=== PATIENT | female | born 1960 | race Caucasian/White ===

== ENCOUNTER → 2025-06-24 | Outpatient (CLI) | payer OTHER, SELFPAY ==
--- NOTE | 2025-06-24 | EMB_PTH ---
PATIENT: FREDO MANZO LOC: [facility] U#:[id number] AGE/SX: 64/F ROOM: RE06/24/[address]: Dr. Tasha Miguel MD : [id number] BED: DIS: 06/24/2025 SPEC #: [id number] RECD: 06/24/25 16:37 STATUS: DUSTIN ELENITA #: [id number] CAROLINE: 06/24/25 00:[address]: Tasha Miguel DEPT: SURGICAL PATHOLOGY RECD BY: Cliff Nicohlas Tissues: A - Endometrium, NOS Procedures: Surgery Specimen Level IV HEADER OPERATION: Endometrial biopsy / polypectomy PRE-OP DIAGNOSIS: Endometrial hyperplasia TISSUE SUBMITTED: A- Endometrial tissue / polyp MICROSCOPIC DIAGNOSIS A. Endometrium, biopsy/polypectomy: - Benign endometrial polyp and few strips of superficial endometrium. MICROSCOPIC DESCRIPTION Slides are reviewed. GROSS DESCRIPTION A. Received in formalin labeled the patient's name and date of is a 2.4 x 1.1 x 0.2 cm aggregate of dawn-pink tissue fragments, mucoid material and blood clot. Additionally received is a 4.1 x 1.0 x 0.5 cm dawn-pink, focally congested and granular, rubbery polypoid portion of tissue; 1 end is focally shaggy and is presumed to be the resection margin (inked black). The polyp is serially sectioned. Entirely submitted in 3 cassettes as follows: A1: Aggregate of tissue fragments and mucoid materialA2-A3: Polyp DE 06/25/2025 CPT:[id number]
== END | disposition home or self-care (01) ==
LOC: LABSPEC 16:18
PROVIDERS: Visit Provider Obstetrics & Gynecology
DX: N85.01 Benign endometrial hyperplasia (principal)
CPT/HCPCS: 88305

== ENCOUNTER → 2025-07-10 | Outpatient (CLI) | payer OTHER, SELFPAY ==
--- NOTE | 2025-07-10 12:11 | US_ITS ---
PROCEDURE: TRANSVAGINAL NON- 07/10/2025 REASON FOR EXAM: PMB TECHNIQUE: TRANSVAGINAL NON- COMPARISON: None FINDINGS: Measurements: Uterus: 6.9 cm x 3.7 cm x 2.6 cm with a volume of 34.07 mL Endometrial Thickness: 1.3 mm Right Ovary: Not visualized. Left Ovary: Not visualized. Uterus: Heterogeneous echotexture with a small 8 mm x 8 mm x 8 mm fibroid. Focal calcifications are seen. Endometrium: Unremarkable. It measures 1.3 mm. Right ovary: Not visualized. Left ovary: Not visualized. Other: No large pelvic mass identified. US/Transvaginal Non- IMPRESSION: Fibroid change in the uterus. The endometrium is not thickened. The ovaries were not visualized. Reading Location: [id number]
--- OUTSIDE RECORDS SUMMARY | 2025-07-10 18:24 | XMS RPT_ITS | CCD ---
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 Primary Care Unavailable Javy HANNON Nereyda LThais Primary Care Provider [phone] JEREMIAH PALAFOXSSICA Rubia. Primary Care Unavailable CAYETANO HIRSCH Attending Unavailable RADHA BILLINGSLEY Attending Unavailable KASANDRAEY NEREYDA Rubia. Primary Care Unavailable CAYETANO HIRSCH Attending Unavailable YONLEY NEREYDA L. Primary Care Unavailable YONLEY, NEREYDA L Primary Care Physician Sadiq Reis Attending Unavailable Sadiq Reis Attending Unavailable Yobrianneey DO Nereyda Rubia Primary Care Provider JAVY NEREYDA L Referring Unavailable YONLEY, NEREYDA L Primary Care Unavailable MARGRET RODRIGUEZ Attending Unavailable YOBRIANNEEY, NEREYDA L Primary Care Unavailable BIRD, MAGDALENE NORMA Referring Unavailable BIRD, MAGDALENE NORMA Attending Unavailable BIRD, MAGDALENE NORMA Primary Care Unavailable SYSTEM, PROVIDER NOT IN Referring Unavaila ble SYSTEM, PROVIDER NOT IN Attending Unavaila ble BIRD, MAGDALENE NORMA Primary Care Unavailable BIRD, MAGDALENE NORMA Primary Care Unavailable SYSTEM, PROVIDER NOT IN Referring Unavaila ble SYSTEM, PROVIDER NOT IN Attending Unavaila ble BIRD, MAGDALENE NORMA Referring Unavailable BIRD, MAGDALENE NORMA Attending Unavailable BIRD, MAGDALENE NORMA Primary Care Unavailable Adrienne James Attending Provider Unavailable Myriam AGUILAR, Dr. Cordova Attending Provider Adrienne James Attending Unavailable Adrienne James Attending Unavailable Tasha Miguel Attending Unavailable Magdalene Ritter Primary Care Unavailable Tasha Miguel Referring Unavailable Tasha Miguel Attending Unavailable Tasha Miguel Attending Unavailable Allergies Allergy Classification Reported Allergen(s) Allergy Type Date of Onset Reaction(s) Facility Anti-Epileptic Agents (1 source) gabapentin Drug Allergy 0 Swelling [facility] Quinolones (antibiotic) (2 sources) Ciprofloxacin Drug Allergy 5 Other (See Comments) [facility] (19 sources) Ciprofloxacin; Translations: [CIPROFLOXACIN] Drug Allergy 5 Other (See Comments) [facility] (12 sources) gabapentin; Translations: [GABAPENTIN] Drug Allergy 0 Swelling [facility] (2 sources) Ciprofloxacin; Translations: [Cipro] Drug Allergy [facility] Repository (1 source) Ciprofloxacin Drug Allergy 5 [facility] Repository Medications Current Medications Medication Drug Class(es) Dates Sig (Normalized) Sig (Original) [id number] actuat albuterol 0.09 mg/actuat metered dose inhaler (6 sources) beta2-Adrenergic Agonist Start: 06-30-2022 take 2 puff(s) by inhalation every four hours as needed albuterol sulfate HFA (PROVENTIL;VENTOL IN;PROAIR) 108 (90 Base) MCG/ACT inhaler Inhale 2 puffs into the lungs every 4 hours as needed for Shortness of Breath 1 each 2 06/30/2022 Active Start: 04-29-2021 take 2 puff(s) by in halation every four hours as needed albuterol sulfate HFA 108 (90 Base) MCG/ACT inhaler Indications: Simple chronic bronchitis (HCC) Inhale 2 puffs into the lungs every 4 hours as needed for Shortness of Breath 1 Inhaler 1 04/29/2021 Active Start: 11-26-2019 take 2 puff(s) by in halation every six hours as needed for wheezing albuterol sulfate HFA 108 (90 Base) MCG/ACT inhaler Inhale 2 puffs into the lungs every 6 hours as needed for Wheezing 1 Inhaler 1 11/26/2019 Active Start: 04-05-2012 albuterol Inha lation, Refills(s) 0, Wheezing Start Date: 04/05/12 Status: Ordered alendronic acid 70 mg oral tablet (2 sources) Bisphosphonate Start: 06-18-2025 take 1 tablet by mouth every week Alendronate (Fosamax) 70 mg tablet Active 70 mg PO EVERY WEEK June 18, 2025 12:00am buprenorphine 8 mg / naloxone 2 mg sublingual film (3 sources) Partial Opioid Agonist, Opioid Antagonist Start: 06-18-2025 Buprenorphine-Nal oxone 8-2 mg film Active 2 NMA BUCCAL daily June 18, 2025 12:00am Start: 07-08-2023 buprenorphine- naloxone (SUBOXONE) 8-2 MG SUBL SL tablet Dissolve 1 tablet under tongue twice daily as directed 07/08/2023 Active 24 hr buPROPion hydrochloride 150 mg extended release oral tablet (2 sources) Aminoketone Start: 06-18-2025 take 1 tablet by mouth once daily in the morning Bupropion Hcl (Wellbutrin Xl) 150 mg tablet extended release 24 hr Active 150 mg PO EVERY MORNING June 18, 2025 12:00am calcium carbonate 1500 mg / cholecalciferol 0.01 mg oral tablet (2 sources) Vitamin D Start: 06-18-2025 Calcium Carbonate-Vitamin D3 600 mg-10 mcg (400 unit) tablet Active 2 {tbl} PO daily June 18, 2025 12:00am cephalexin 500 mg oral capsule (1 source) Cephalosporin Antibacterial Start: 07-10-2024 take 1 capsule by mouth three times daily cephALEXin (KEFLEX) 500 MG capsule Take 1 capsule by mouth 3 times daily 21 capsule 07/10/2024 Active estradiol 0.1 mg/ml vaginal cream (2 sources) Estrogen Start: 06-18-2025 Estradiol 0.01 % (0.1 mg/gram) cream Active 2 g VAGINAL daily June 18, 2025 12:00am for 7 days hydroCHLOROthiazide 25 mg oral tablet (3 sources) Thiazide Diuretic Start: 06-18-2025 take 1 tablet by mouth once daily Hydrochlorothiazide 25 mg tablet Active 25 mg PO daily June 18, 2025 12:00am Start: 03-25-2024 take 1 tablet by sam th once daily in the morning hydroCHLOROthiazide (HYDRODIURIL) 25 MG tablet Take 1 tablet by mouth every morning 90 tablet 03/25/2024 Active hydrOXYzine hydrochloride 50 mg oral tablet (3 sources) Antihistamine Start: 06-18-2025 take 1 tablet by mouth twice daily Hydroxyzine Hcl 50 mg tablet Active 50 mg PO TWICE A DAY June 18, 2025 12:00am Start: 08-07-2013 take 1 tablet by sam th four times daily as needed Atarax 25 mg Tab 25 mg, Oral, QID, PRN as needed for itching, # 20 tab(s), Refills(s) 0 Start Date: 08/07/13 Status: Ordered levothyroxine sodium 0.025 mg oral tablet (6 sources) l-Thyroxine Start: 06-18-2025 take 1 tablet by mouth once daily Levothyroxine (Levoxyl) 25 mcg tablet Active 25 ug PO daily June 18, 2025 12:00am Start: 12-19-2023 take 1 tablet by sam th once daily in the morning levothyroxine (SYNTHROID) 25 MCG tablet Take 1 tablet by mouth every morning 30 tablet 12/19/2023 Active Start: 04-12-2023 take 1 tablet by sam once daily levothyroxine (SYNTHROID, LEVOTHROID) 25 MCG tablet Take 1 (one) tablet (25 mcg total) by mouth daily . 0 04/12/2023 Active 24 hr metoprolol succinate 25 mg extended release oral tablet (5 sources) beta-Adrenergic Heike Start: 10-21-2022 take 1 tablet by mouth once daily metoprolol succinate (TOPROL XL) 25 MG extended release tablet TAKE 1 TABLET BY MOUTH EVERY DAY 90 tablet 1 10/21/2022 Active Start: 04-29-2021 take 1 tablet by sam once daily metoprolol succinate (TOPROL XL) 25 MG extended release tablet Take 1 tablet by mouth daily 90 tablet 1 04/29/2021 Active Start: 11-26-2019 take 1 tablet by sam th once daily metoprolol succinate (TOPROL XL) 25 MG extended release tablet Take 1 tablet by mouth daily 90 tablet 1 11/26/2019 Active naproxen 500 mg oral tablet (2 sources) Nonsteroidal Anti-inflammatory Drug Start: 06-22-2024 take 1 tablet by mouth twice daily as needed for pain naproxen 500 mg Tab 500 mg = 1 tab(s), Oral, BID, PRN for pain, # 20 tab(s), Refills(s) 0, Pharmacy: [facility] #[id number], 170, cm, 06/22/24 11:00:00 EDT, Height/Length Dosing, 87.6, kg, 06/22/24 11:00:00 EDT, Weight Dosing Start Date: 06/22/24 Status: Ordered Start: 03-25-2024 take 1 tablet by sam th twice daily at mealtime naproxen (EC-NAPROSYN) 500 MG EC tablet Take 1 tablet by mouth 2 times daily (with meals) 60 tablet 2 03/25/2024 Active Nitrostat (1 source) Nitrate Vasodilator Start: 04-05-2012 Nitrostat SubLingual, q5min, tab(s), Refills(s) 0, Chest pain Start Date: 04/05/12 Status: Ordered oxyCODONE hydrochloride 5 mg oral capsule (1 source) Opioid Agonist Start: 06-22-2024 oxyCODONE 5 mg Cap 5 mg = 1 cap(s), Oral, q6hr, PRN Pain 8-10, # 12 cap(s), Refills(s) 0, Pharmacy: [id number], 170, cm, 06/22/24 11:00:00 EDT, Height/Length Dosing, 87.6, kg, 06/22/24 11:00:00 EDT, Weight Dosing Start Date: 06/22/24 Status: Ordered Symbicort 160 mcg-4.5 mcg 160 mcg-4.5 mcg/inh Aerosol (1 source) Start: 04-05-2012 Symbicort 160 mcg-4.5 mcg 160 mcg-4.5 mcg/inh Aerosol Inhalation, Refill(s) 0, Wheezing Start Date: 04/05/12 Status: Ordered tamsulosin hydrochloride 0.4 mg oral capsule (1 source) alpha-Adrenergic Heike Start: 06-22-2024 End: 06-29-2024 take 1 capsule by mouth once daily Flomax 0.4 mg Cap 0.4 mg = 1 cap(s), Oral, Daily, X 7 day(s), # 7 cap(s), Refills(s) 0, Pharmacy: [facility], 170, cm, 06/22/24 11:00:00 EDT, Height/Length Dosing, 87.6, kg, 06/22/24 11:00:00 EDT, Weight Dosing Start Date: 06/22/24 Stop Date: 06/29/24 Status: Ordered Zofran ODT 4 mg Tab-Dis (1 source) Start: 06-22-2024 take 1 tablet by mouth every eight hours as needed for nausea Zofran ODT 4 mg Tab-Dis 4 mg = 1 tab(s), Oral, q8hr, PRN Nausea/Vomiting, # 16 tab(s), Refills(s) 0, Pharmacy: [facility] #[id number], 170, cm, 06/22/24 11:00:00 EDT, Height/Length Dosing, 87.6, kg, 06/22/24 11:00:00 EDT, Weight Dosing Start Date: 06/22/24 Status: Ordered Completed/Discontinued Medications Medication Drug Class(es) Dates Sig (Normalized) Sig (Original) aspirin 81 mg chewable tablet (1 source) Platelet Aggregation Inhibitor, Nonsteroidal Anti-inflammatory Drug Start: 12-02-2019 End: 12-02-2019 aspirin chewable tablet 324 mg cetirizine hydrochloride 10 mg oral tablet (2 sources) Histamine-1 Receptor Antagonist Start: 05-15-2018 End: 12-02-2019 take 1 tablet by mouth once daily cetirizine (ZYRTEC ALLERGY) 10 MG tablet Indications: Acute non-recurrent maxillary sinusitis Take 1 tablet by mouth daily 30 tablet 0 05/15/2018 12/02/2019 Discontinued (LIST CLEANUP) fluticasone propionate 0.05 mg/actuat metered dose nasal spray (2 sources) Corticosteroid Start: 05-15-2018 End: 12-02-2019 fluticasone (FLONASE) 50 MCG/ACT nasal spray Indications: Acute non-recurrent maxillary sinusitis 1 spray by Nasal route daily 1 Bottle 1 05/15/2018 12/02/2019 Discontinued (LIST CLEANUP) Problems Active Problems Problem Classification Problem Date Documented Date Episodic/Chronic Abdominal pain (3 sources) Pain in pelvis; Translations: [Pelvic and perineal pain] Onset: 06-16-2025 Episodic Acute myocardial infarction (1 source) Myocardial infarction 02-03-2012 Chronic Calculus of urinary tract (1 source) Kidney stone; Translations: [Calculus of kidney] Onset: 06-22-2024 Episodic Chronic obstructive pulmonary disease and bronchiectasis (5 sources) Chronic bronchitis; Translations: [Unspecified chronic bronchitis] Onset: 03-15-2016 11-27-2019 Chronic Menstrual disorders (1 source) Irregular menstruation, unspecified; Translations: [Irregular menstruation, unspecified] Onset: 07-07-2025 Chronic Other and unspecified benign neoplasm (1 source) Lipoma of skin and subcutaneous tissue of neck; Translations: [Benign lipomatous neoplasm of skin and subcutaneous tissue of head, face and neck] 06-22-2023 Episodic Other and unspecified benign neoplasm (2 sources) Benign lipomatous neoplasm of skin and subcutaneous tissue of head, face and neck; Translations: [Benign lipomatous neoplasm of skin and subcutaneous tissue of head, face and neck] Onset: 06-22-2023 Episodic Other ear and sense organ disorders (3 sources) Sensorineural hearing loss, bilateral; Translations: [Sensorineural hearing loss, bilateral] Onset: 04-27-2023 04-27-2023 Chronic Other ear and sense organ disorders (1 source) Sensorineural hearing loss, bilateral; Translations: [Sensorineural hearing loss, bilateral] Onset: 04-27-2023 Chronic Other female genital disorders (2 sources) Endometrial hyperplasia; Translations: [Endometrial hyperplasia, unspecified] 06-18-2025 Chronic Other female genital disorders (1 source) Benign endometrial hyperplasia; Translations: [Benign endometrial hyperplasia] Onset: 07-01-2025 Chronic Other female genital disorders (1 source) Endometrial hyperplasia, unspecified; Translations: [Endometrial hyperplasia, unspecified] Onset: 06-24-2025 Chronic Other female genital disorders (1 source) Vaginal discharge; Translations: [Other specified noninflammatory disorders of vagina] Episodic Other female genital disorders (2 sources) Polyp of corpus uteri; Translations: [Polyp of corpus uteri] 06-24-2025 Episodic Other female genital disorders (1 source) Polyp of corpus uteri; Translations: [Polyp of corpus uteri] Onset: 06-24-2025 Episodic Other screening for suspected conditions (not mental disorders or infectious disease) (3 sources) Endometrium thickened; Translations: [Abnormal findings on diagnostic imaging of other specified body structures] Onset: 06-24-2025 06-24-2025 Chronic Other screening for suspected conditions (not mental disorders or infectious disease) (2 sources) Cancer cervix screening status; Translations: [Encounter for screening for malignant neoplasm of cervix] Episodic Other skin disorders (2 sources) Mass of neck; Translations: [Localized swelling, mass and lump, neck] 04-27-2023 Episodic Other skin disorders (2 sources) Localized swelling, mass and lump, neck; Translations: [Localized swelling, mass and lump, neck] Onset: 04-27-2023 Episodic Pleurisy; pneumothorax; pulmonary collapse (1 source) Pneumothorax 01-24-2014 Episodic Residual codes; unclassified (2 sources) Asymptomatic menopausal state; Translations: [Asymptomatic menopausal state] Onset: 09-17-2024 Episodic Skin and subcutaneous tissue infections (2 sources) Cellulitis of left upper limb; Translations: [Cellulitis of left upper limb] Onset: 07-10-2024 07-10-2024 Episodic Thyroid disorders (5 sources) Hypothyroidism; Translations: [Hypothyroidism, unspecified] Onset: 04-27-2023 04-27-2023 Chronic Unclassified (1 source) Patient encounter status Unclassified (1 source) Emphysema 01-24-2014 Past or Other Problems Problem Classification Problem Date Documented Da te Episodic/Chronic Diabetes mellitus without complication (1 source) Hyperglycemia, unspecified; Translations: [Hyperglycemia, unspecified] Onset: 07-13-2023 Episodic Genitourinary symptoms and ill-defined conditions (7 sources) Dysuria; Translations: [Dysuria] Onset: 07-07-2016 Resolved: 07-06-2018 Episodic Nonspecific chest pain (1 source) Chest pain Episodic Other connective tissue disease (1 source) Other specified soft tissue disorders; Translations: [Other specified soft tissue disorders] Onset: 07-13-2023 Episodic Other lower respiratory disease (5 sources) Dyspnea; Translations: [Shortness of breath] Onset: 11-17-2017 Resolved: 07-06-2018 07-06-2018 Episodic Other non-traumatic joint disorders (1 source) Shoulder pain Episodic Screening and history of mental health and substance abuse codes (1 source) Ex-smoker; Translations: [Personal history of nicotine dependence] Onset: 08-16-2021 08-16-2021 Episodic Spondylosis; intervertebral disc disorders; other back problems (5 sources) Chronic low back pain; Translations: [Low back pain] Onset: 05-06-2016 05-06-2016 Episodic Syncope (5 sources) Syncope; Translations: [Syncope and collapse] Onset: 11-17-2017 Resolved: 07-06-2018 07-06-2018 Episodic Unclassified (1 source) Onset: 07-13-2023 07-13-2023 Results Test Name Value Interpretation Reference Range Facility Surgical pathology reportOrd ered By: Radha Hobbs on 06-27-2025 Surgical pathology study [facility] Security Flex Utility Officer Office Visit Reporton 06-24-2025 Security Flex Utility Officer Office Visit Report [facility] [address], [address] [place] [address] OFFICE VISIT Date of Service: 06/24/25 MR#: [id number] Acct: [id number] Name: SHONA MANZO Rep #: [id number] : 1960 Provider: Dr. Tasha guerra MD Age/Sex: 64/F [place] [facility] [place] Signed Intake Vital Signs 06/24/25 13:29 Height 5 ft 7.5 in Weight: 173 lb 2 oz BMI 26.6 BP 143/84 H Intake Visit Reasons: [facility] ([facility] Certified Solid Waste Facility Operator Required: No Is patient in pain?: No (vaginal pain usually when waking up) Allergies ciprofloxacin (From Cipro) Allergy (Severe, Verified 06/24/25 13:29) Anaphylaxis Medications ???Medication ???Instructions ???Recorded ???Confirmed ???Type alendronate 70 mg tablet (Fosamax) 70 mg PO QWEEK 06/18/25 06/24/25 History buprenorphine 8 mg-naloxone 2 mg 2 film buccal QDAY 06/18/25 History sublingual film bupropion HCl 150 mg 24 hr tablet, 150 mg PO QAM 06/18/25 06/24/25 History extended release (Wellbutrin XL) calcium 600 mg (as 2 tab PO QDAY 06/18/25 06/24/25 Hi story carbonate)-vitamin D3 10 mcg (400 unit) tablet estradiol 0.01% (0.1 mg/gram) 2 g vaginal QDAY 06/18/25 06/24/25 History vaginal cream hydrochlorothiazide 25 mg tablet 25 mg PO QDAY 06/18/25 06/24/25 Hi story hydroxyzine HCl 50 mg tablet 50 mg PO BID 06/18/25 06/24/25 His tory levothyroxine 25 mcg tablet 25 mcg PO QDAY 06/18/25 06/24/25 H istory (Levoxyl) Is last menstrual period known: No Post menopausal: Yes Patient : No : No PFSH PFSH Medical History Overweight (BMI 25.0-29.9) Osteoporosis Edema Alcoholism Depression Vitamin D deficiency Hypothyroidism Surgical History History of cholecystectomy History of appendectomy Family History Father Myocardial infarction, Onset Age: 83 Mother Liver cancer Social History number of children: 3 current occupational status: retired Smoking Status: Former smoker alcohol intake: former year quit: 2012 do you feel safe at home: No additional social history: Adopted son - Jose Luis - [place] History 6 Elective abortions Hx Para 3 Spontaneous abortions 3 Hx # Term Pregnancies Ectopic pregnancies Hx # Pregnancies Multiple births # of living children 3 Past Pregnancies Del. Date Name GA/Weeks Outcome Route Bth Weight Gen Labor Lgth Anesthesia Del Locatn Provider FOB Unknown 1976 Kayla Unknown 1978 Magalys Unknown 1981 Kailey HPI [facility]) Details: SHONA MANZO is a 64 year old who presents for thickened endometrium. she dneies any vaginal bleeidng althought she has pelvic discomfort and dyspareunia and has bee nasking for a hysterectomy for years. she is unable to have sex wit hher due to it. she has vaginal dryness also, was unable to take vaginal estrogen due to bleeding. she denies any discharge or odor, no fevers. she co lower abdominal pain at times Female Reproductive History Cycle Length: 21-35 Bleeding Duration: 5 Questions: metrorrhagia: No, sexually active: Yes, dyspareunia: No and PCB: No Menopausal Symptoms: No hot flashes, No night sweats, No weight change, No mood changes, No difficulty concentrating, No sleep problems and No change in libido ROS Const Constitutional: Denies fatigue, night sweats, weight gain or weight loss ENT ENT: Reports system reviewed and no additional complaints, except as documented Cardio Card: Denies chest pain Resp Resp: Denies cough or dyspnea GI GI: Reports as per HPI; Denies constipation, nausea or vomiting : Reports as per HPI; Denies hot flashes, nipple discharge, vaginal discharge, vaginal dryness, vaginal odor or vaginal pruritus Musc Musc: Denies arthralgias, back pain or muscle weakness Skin Skin/Breast: Denies alopecia, change in hair, dry skin, breast mass, breast pain, breast skin changes or nipple discharge Neuro Neuro: Reports system reviewed and no additional complaints, except as documented Psych Psych: Reports system reviewed and no additional complaints, except as documented; Denies change in libido or difficulty concentrating Endo Endo: Denies cold intolerance, excessive sweating, heat intolerance or polydipsia Dwain/Lymph Hematologic/Lymphat ic: Denies easy bleeding, Denies easy bruising and Denies lymphadenopathy Exam Const General: cooperative, healthy appearing, comfortable, no acute distress and well developed Orientation: alert HENWV Head: normal to inspection and normo (more content not included)... Normal [facility] Surgery Specimen Level Jayy 06-24-2025 Surgery Specimen Level IV Patient Age/Sex Location Account Attending Physician SHONA MANZO 64/F LABSPEC [id number] Dr. Tasha Miguel MD Specimen: [id number] Received: 06/24/25 Status: DUSTIN Sherman Num: [id number] Spec Type: ENDOM BX/C Jovita Dr: Dr. Tasha Miguel MD HEADER OPERATION: Endometrial biopsy / polypectomy PRE-OP DIAGNOSIS: Endometrial hyperplasia TISSUE SUBMITTED: A- Endometrial tissue / polyp MICROSCOPIC DIAGNOSIS A. Endometrium, biopsy/polypectomy: - Benign endometrial polyp and few strips of superficial endometrium. MICROSCOPIC DESCRIPTION Slides are reviewed. GROSS DESCRIPTION A. Received in formalin labeled the patient's name and date of is a 2.4 x 1.1 x 0.2 cm aggregate of dawn-pink tissue fragments, mucoid material and blood clot. Additionally received is a 4.1 x 1.0 x 0.5 cm dawn-pink, focally congested and granular, rubbery polypoid portion of tissue; 1 end is focally shaggy and is presumed to be the resection margin (inked black). The polyp is serially sectioned. Entirely submitted in 3 cassettes as follows: A1: Aggregate of tissue fragments and mucoid materialA2-A3: Polyp NV 06/25/2025 CPT:95917 Patient Age/Sex Location Account Attending Physician SUNITASHONA 64/F LABSPEC [id number] Dr. Tasha Miguel MD Signed (signatur e on file) Dr. Radha Hobbs MD 06/27/25 1553 Normal [facility] Comment on above: Performed By: #### P SUSIDNEY #### [facility] [address] [place], [place] [address]yari Dias. [place], [place], [id number] US PELVIC TRANSABDOMINAL AND TRANSVAGINALon 06-16-2025 US PELVIC TRANSABDOMINAL AND TRANSVAGINAL EXAMINATION: US PELVIC TRANSABDOMINAL AND TRANSVAGINAL HISTORY: ORDERING SYSTEM PROVIDED HISTORY: Pelvic and perineal pain, TECHNOLOGIST PROVIDED HISTORY: Illness/Other Reason for exam: pelvic pain, spotting Cancer History: unk Surgery, RadiationHistory: unk Encounter Type: Initial Additional signs and symptoms: none ORDERING SYSTEM PROVIDED DIAGNOSIS CODES: R10.2 Pelvic and perineal pain COMPARISON: None TECHNIQUE: Transabdominal and transvaginal pelvic ultrasound with Doppler interrogation. FINDINGS: UTERUS: Measures 6.8 x 2.4 x 4.0 cm. There is a 1.7 x 1.6 x 1.6 cm right fundal intramural fibroid. Nabothian cysts are present, small. ENDOMETRIUM: Measures 6 mm, heterogenous. Endometrial stripe is hypervascular as well. OVARIES: Not visualized. Echogenic ill-defined area in the right adnexa measuring 5.5 x 5.5 x 3.8 cm. This could represent bowel within the pelvis but other etiologies are not excluded. There is a 1.7 x 1.3 x 1.3 cm focus in the left adnexa that could represent the ovary, however, the exact etiology is uncertain. MISCELLANEOUS: No significant free fluid. IMPRESSION: 1. Heterogenous, hypervascular and mildly thickened endometrial stripe. Endometrial carcinoma must be excluded although other etiologies could appear in a similar fashion. Tissue sampling recommended. 2. Ovaries not definitively visualized. Question some bowel in the right adnexa. Etiology of the areas imaged in the adnexal regions is uncertain. Pelvic CT with contrast could be obtained for further interrogation. 3. Fibroid uterus. Workstation ID: [id number] Dictated by: JACQUELIN RUSSO on MonJun 16, 2025 3:20:30 PM EDT Transcribed by: JACQUELIN RUSSO on MonJun 16, 2025 3:20:30 PM EDT Finalized by: JACQUELIN RUSSO on MonJun 16, 2025 3:20:30 PM EDT [facility] Comment on above: Order Comment: Fax Injury/Trauma or Illness?:Illness/Other How long have you had these symptoms (acute/chronic)?:Acute Reason for exam?:pelvic pain, spotting History of cancer?:unk Surgeries, chemotherapy, or radiation?:unk patient states unilateral oophorectomy, unsure side Type of Exam?:Initial Additional signs and symptoms?:none XR BONE DENSITY DEXA AXIALon 09-17-2024 XR BONE DENSITY DEXA AXIAL EXAMINATION: XR BONE DENSITY DEXA AXIAL 09/17/2024 2:35 PM HISTORY: ORDERING SYSTEM PROVIDED HISTORY: Asymptomatic menopausal state, TECHNOLOGIST PROVIDED HISTORY: Illness/Other Reason for exam: osteoporosis Encounter Type: Initial Additional signs and symptoms: postmenopausal ORDERING SYSTEM PROVIDED DIAGNOSIS CODES: Z78.0 Asymptomatic menopausal state COMPARISON: None available. TECHNIQUE: Bone mineral density measurements of the lumbar spine and left hip were performed on a Hologic system. FINDINGS: Lumbar spine: The mean bone mineral density at the L1 through L4 levels is measured at 0.769 grams/centimeters square corresponding to a T-score of -2.5 and a Z-score of -0.9. This is within the osteoporosis range. Left hip: The mean bone mineral density of the femoral neck is measured at 0.701 grams/centimeters square corresponding to a T-score of -1.3 and a Z-score of 0.1. This is within the osteopenic range. The mean bone mineral density of the total hip is measured at 0.778 grams/centimeters square corresponding to a T-score of -1.3 and a Z-score of -0.2. This is within the osteopenic range. IMPRESSION: Osteoporosis by WHO criteria. [employer] Creation Workstation ID: [id number] Dictated by: JAKE NICE on MonSep 18, 2024 11:10:39 AM EST Transcribed by: JEN PIMENTEL on MonSep 18, 2024 12:06:07 PM EST Finalized by: JAKE NICE on MonSep 18, 2024 2:55:25 PM EST Normal [facility] Comment on above: Order Comment: PT/FA X Injury/Trauma or Illness?:Illness/Other How long have you had these symptoms (acute/chronic)?:Unknown Reason for exam?:osteoporosis Type of Exam?:Initial Additional signs and symptoms?:postmenopausal BMPon 06-22-2024 Anion gap [Moles/Vol] 9 mmol/L Normal 6-16 [facility] Comment on above: Performed By: #### 2 [id number] #### [facility] [address] [place] [address] Calcium [Mass/Vol] 8.8 mg/dL Low 8.9-11.1 [facility] Comment on above: Performed By: #### 2 [id number] #### [facility] [address] [place] [address] Chloride [Moles/Vol] 103 mmol/L Normal 101-111 [facility] Comment on above: Performed By: #### 2 [id number] #### [facility] [address] [place] [address] CO2 [Moles/Vol] 29 mmol/L Normal 21-31 [facility] Comment on above: Performed By: #### 2 [id number] #### [facility] [address] [place] [address] Creatinine [Mass/Vol] 0.9 mg/dL Normal 0.5-1.3 [facility] Comment on above: Performed By: #### 2 [id number] #### [facility] [address] [place] [address] Glucose [Mass/Vol] 109 mg/dL Normal 55-199 [facility] Comment on above: Performed By: #### 2 [id number] #### [facility] [address] [place] [address] Potassium [Moles/Vol] 3.7 mmol/L Normal 3.5-5.3 [facility] Comment on above: Performed By: #### 2 [id number] #### [facility] [address] [place] [address] Sodium [Moles/Vol] 137 mmol/L Normal 135-145 [facility] Comment on above: Performed By: #### 2 [id number] #### [facility] [address] [place] [address] Urea nitrogen [Mass/Vol] 11 mg/dL Normal 5-21 [facility] Comment on above: Performed By: #### 2 [id number] #### [facility] [address] [place] [address] Urea nitrogen/Creatinine [Mass ratio] 12 No Units Normal 10-20 [facility] Comment on above: Performed By: #### 2 [id number] #### [facility] [address] [place] [address] CBC w/ Auto Diffon 4 Basophils/100 WBC (Bld) 0.5 % Normal 0.0-2.0 [facility] Comment on above: Performed By: #### 2 [id number] #### [facility] [address] [place] [address] Basophils/Leukocytes Auto (Bld) [Pure # fraction] 0.0 E9/L Normal 0.0-0.2 [facility] Comment on above: Performed By: #### 2 [id number] #### [facility] [address] [place] [address] Eosinophils (Bld) [#/Vol] 0.0 E9/L Normal 0.0-0.5 [facility] Comment on above: Performed By: #### 2 [id number] #### [facility] [address] [place] [address] Eosinophils/100 WBC (Bld) 0.5 % Normal 0.0-8.0 [facility] Comment on above: Performed By: #### 2 [id number] #### [facility] [address] [place] [address] Erythrocyte distribution width (RBC) [Ratio] 14.1 % Normal 10.9-14.2 [facility] Comment on above: Performed By: #### 2 [id number] #### [facility] [address] [place] [address] Hematocrit (Bld) [Volume fraction] 37.1 % Normal 34.0-46.0 [facility] Comment on above: Performed By: #### 2 364191 #### [facility] [address] [place] [address] Hemoglobin (Bld) [Mass/Vol] 12.8 g/dL Normal 12.0-16.0 [facility] Comment on above: Performed By: #### 2 645609 #### [facility] [address] [place] [address] Lymphocytes (Bld) [#/Vol] 0.9 E9/L Low 1.0-4.0 [facility] Comment on above: Performed By: #### 2 583174 #### [facility] [address] [place] [address] Lymphocytes/100 WBC (Bld) 11.6 % Low 14.0-50.0 [facility] Comment on above: Performed By: #### 2 378954 #### [facility] [address] [place] [address] MCH (RBC) [Entitic mass] 30.8 pg Normal 27.0-34.0 [facility] Comment on above: Performed By: #### 2 [id number] #### [facility] [address] [place] [address] MCHC (RBC) [Mass/Vol] 34.7 g/dL Normal 31.4-36.0 [facility] Comment on above: Performed By: #### 2 807497 #### [facility] [address] [place] [address] MCV (RBC) [Entitic vol] 89.0 fL Normal 80.0-100.0 [facility] Comment on above: Performed By: #### 2 679007 #### [facility] [address] [place] [address] Monocytes (Bld) [#/Vol] 0.4 E9/L Normal 0.2-1.0 [facility] Comment on above: Performed By: #### 2 582951 #### [facility] [address] [place] [address] Neutrophils (Bld) [#/Vol] 6.0 E9/L Normal 2.0-7.5 [facility] Comment on above: Performed By: #### 2 [id number] #### [facility] [address] [place] [address] Neutrophils/100 WBC (Bld) 82.1 % High 36.0-75.0 [facility] Comment on above: Performed By: #### 2 045252 #### [facility] [address] [place] [address] Platelet 273.0 E9/L Normal 150.0-500.0 [facility] Comment on above: Performed By: #### 2 283039 #### [facility] [address] [place] [address] Platelet mean volume (Bld) [Entitic vol] 7.9 fL Normal 6.4-10.8 [facility] Comment on above: Performed By: #### 2 [id number] #### [facility] [address] [place] [address] RBC (Bld) [#/Vol] 4.2 E12/L Low 4.3-5.9 [facility] Comment on above: Performed By: #### 2 407081 #### [facility] [address] [place] [address] WBC corrected for nucl RBC Auto (Bld) [#/Vol] 7.4 E9/L Normal 4.0-11.0 [facility] Comment on above: Performed By: #### 2 [id number] #### [facility] [address] [place] [address] CHEMISTRYOrdered By: SYSTEM SYSTEM on 06-22-2024 Anion gap [Moles/Vol] 9 mmol/L Normal 6 - 16 mEq/L R emisol Chem Calcium [Mass/Vol] 8.8 mg/dL Low 8.9 - 11. 1 mg/dL [facility] Chloride [Moles/Vol] 103 mmol/L Normal 101 - 1 11 mmol/L [facility] CO2 [Moles/Vol] 29 mmol/L Normal 21 - 31 mmol/L [facility] Creatinine [Mass/Vol] 0.9 mg/dL Normal 0.5 - 1.3 mg/dL [facility] eGFR 72 mL/min/1.73 m2 Normal >=59mL/min /1. 73 m2 [facility] Glucose [Mass/Vol] 109 mg/dL Normal 55 - 199 mg/dL [facility] Potassium [Moles/Vol] 3.7 mmol/L Normal 3.5 - 5.3 mmol/L [facility] Sodium [Moles/Vol] 137 mmol/L Normal 135 - 145 mmol/L [facility] Urea nitrogen [Mass/Vol] 11 mg/dL Normal 5 - 21 mg/dL [facility] Urea nitrogen/Creatinine [Mass ratio] 12 mg/mg Normal 10 - [address] Abdomen/Pelvis w/o Contra ston 06-22-2024 CT Abdomen/Pelvis w/o Contrast Exam Date/Time: 06/22/2024 11:20 EDT Reason for Exam: Left flank pain;Other (please specify) Report IMPRESSION: MINIMALLY OBSTRUCTING APPROXIMATELY 2 MM LEFT UVJ CALCULUS. TWO PROBABLE MILDLY HYPERDENSE LEFT LOWER POLE RENAL SINUS. FURTHER EVALUATION WITH ELECTIVE ULTRASOUND IS SUGGESTED. OTHER CHRONIC FINDINGS, NOTED. CLINICAL HISTORY: Left flank pain. COMPARISON: None available. TECHNIQUE: Spiral unenhanced images were obtained of the abdomen and pelvis without contrast. All CT scans at this facility use dose modulation, iterative reconstruction, and/or weight based dosing when appropriate to reduce radiation dose to as low as reasonably achievable. Unless otherwise stated, incidental findings identified in this report do not require routine follow-up imaging. FINDINGS: Liver: No enlargement, significant fatty infiltration, or suspicious lesion of the visualized segments identified without contrast. Biliary: The gallbladder has been removed. Mild to moderate predominantly extrahepatic biliary dilatation, most consistent with chronic reservoir effect. Pancreas: No mass, organized fluid collection, or abnormal pancreatic ductal dilatation. Spleen: Not enlarged. Adrenals: Unremarkable. Kidneys: Approximately 2 mm left UVJ calculus with minimal left hydronephrosis. No other significant urinary tract calculi. Two approximately 1.5 cm mostly exophytic left lower pole renal masses, most likely mildly hyperdense cysts. Further evaluation with an elective ultrasound is suggested. GI tract: No abnormal dilation or wall thickening. Small hiatal hernia. Moderate predominantly sigmoid diverticulosis. The appendix is not confidently identified, without findings to suggest acute appendicitis. Lymph nodes: No pathologically enlarged lymph nodes. Mesentery/peritoneu m: No organized fluid collection, ascites, focal inflammatory changes, or mass. Retroperitoneum: No organized fluid collection, focal inflammatory changes or mass. Vasculature: No aneurysm. Minimal to mild calcified atherosclerotic plaquing. Pelvis: The urinary bladder, uterus, and adnexa are unremarkable. No mass, organized fluid collection, or ascites. Bones/soft tissue: No acute osseous findings identified. Report Lower thorax: Noncontributory. Ordering Provider: Sadiq Reis FINAL REPORT Dictated: 06/22/2024 11:40 am Mehrdad Finn MD Signed (Electronic Signature): 06/22/2024 11:40 am Signed by: Mehrdad Finn MD Transcribed by: UMANG Technologist: BRAD Technical Comments Rectal Contrast Given? No Oral contrast amount in ml's: 0 Normal [facility] ED Clinical Summaryon 2023 ED Clinical Summary ED Clinical Summary [address] [address] ED Clinical Summary Person Information Name: SHONA MANZO [place] Age: 63 Years : 1960 Sex: Female Language: [place] PCP: NEREYDA PALAFOX DO Marital Status: Phone: [phone] Visit Id: Visit Reason: Vomiting; Nausea; Lower leg pain-swelling; Flank pain; LEFT SIDE AND BACK PAIN Speciality: Acuity: 3 Enc Type: Emergency Med Service: Emergency Arrival: 06/22/2024 10:54:10 Discharge: 06/22/2024 12:53:00 LOS: 000 01:59 Checkin: 06/22/2024 10:54:10 Checkout: 06/22/2024 12:53:00 Dispo Type: Home (Routine DC) EVENTS: Event Name Event Status Request Date/Time Start Date/Time Complete Date/Time Arrive Complete 06/22/2024 10:54:10 06/22/2024 10:54:10 06/22/2024 10:54:10 Document Home Meds Request 06/22/2024 10:54:10 Triage Complete 06/22/2024 10:54:10 06/22/2024 11:00:35 06/22/2024 11:00:35 Bed Assign Complete 06/22/2024 10:55:27 06/22/2024 10:55:27 06/22/2024 10:55:27 Dr Exam Complete 06/22/2024 10:55:27 06/22/2024 11:03:50 06/22/2024 11:03:50 RN Exam Complete 06/22/2024 10:55:27 06/22/2024 11:03:36 06/22/2024 11:03:36 Registration Complete 06/22/2024 10:57:57 06/22/2024 10:57:57 06/22/2024 10:57:57 Reg Complete Request 06/22/2024 10:57:57 Reg Bed Request Complete 06/22/2024 10:57:57 06/22/2024 10:57:57 06/22/2024 10:57:57 Registration Complete 06/22/2024 11:03:50 06/22/2024 11:04:00 06/22/2024 11:04:00 Dr Exam Complete 06/22/2024 11:04:28 06/22/2024 11:04:28 06/22/2024 11:04:28 Registration Request 06/22/2024 11:04:28 CT Complete 06/22/2024 11:05:01 06/22/2024 11:07:04 06/22/2024 11:20:56 Pending Labs Complete 06/22/2024 11:05:01 06/22/2024 12:24:22 Lab Complete 06/22/2024 11:05:01 06/22/2024 12:24:22 Meds Admin Complete 06/22/2024 11:05:01 06/22/2024 11:30:49 Patient Care Request 06/22/2024 11:05:01 Pending Labs Complete 06/22/2024 11:58:47 06/22/2024 11:58:47 06/22/2024 12:24:22 Lab Complete 06/22/2024 11:58:47 06/22/2024 11:58:47 06/22/2024 12:24:22 Pending Labs Complete 06/22/2024 12:32:23 06/22/2024 12:32:23 06/22/2024 12:32:24 Discharge Complete 06/22/2024 12:41:56 06/22/2024 12:53:05 06/22/2024 12:53:05 Transfer Complete 06/22/2024 12:53:05 06/22/2024 12:53:05 06/22/2024 12:53:05 ADDRESS: [address] [place] [phone] PHYS DOC NOTES: MEDICAL INFORMATION: Prescriptions Given: New Medications [facility], [address], [place] [id number], [phone] naproxen (naproxen 500 mg Tab) 1 Tablets By Mouth 2 times a day as needed for pain. Refills: 0. ondansetron (Zofran ODT 4 mg Tab-Dis) 1 Tablets By Mouth every 8 hours as needed Nausea/Vomiting. Refills: 0. oxycodone (oxyCODONE 5 mg Cap) 1 Capsules By Mouth every 6 hours as needed Pain 8-10. Refills: 0. tamsulosin (Flomax 0.4 mg Cap) 1 Capsules By Mouth every day for 7 Days. Refills: 0. Medications to Continue with No Changes Other Medications albuterol Inhalation. budesonide-formoter ol (Symbicort 160 mcg-4.5 mcg 160 mcg-4.5 mcg/inh Aerosol) Inhalation. hydrOXYzine (Atarax 25 mg Tab) 25 Milligram By Mouth 4 times a day as needed as needed for itching. Refills: 0. nitroglycerin (Nitrostat) Sublingual every 5 minutes. PATIENT EDUCATION INFORMATION: Instructions: Kidney Stones; Dietary Guidelines to Help Prevent Kidney Stones Follow up: With: Address: When: Shara Ocampo In 3 days 06/25/2024 Comments: Call Dr for diagnosis based follow up With: Address: When: NEREYDA PALAFOX [address] [place] [address] [facility] () In 3 days 06/25/2024 Comments: Call the office of your primary care doctor to arrange for follow-up within the above-stated timeframe. Follow-up with your primary care doctor about this ED visit. You should review your labs, imaging, and diagnoses from this ED visit with your primary care physician. There are occasionally non-emergent findings that require additional follow-up after your ED visit. If you were prescribed medications you should discuss possible side-effects and drug interactions with your pharmacist. Call 911 or go to the nearest Emergency Department if you develop any new or worsening symptoms. Seek immediate medical attention if you develop: worsening abdominal pain, new or worsening nausea, new or worsening vomiting, new or worsening diarrhea, chest pain, shortness of breath, pain with urination, problems urinating, fever, chills, weakness, or any new or worsening symptoms. Follow-up on incidentally visualized renal cyst. Recommend a repeat ultrasound when you are feeling improved for better characterization. DIAGNOSIS: Kidney stone Normal [facility] ED Note-Physicianon 06-22-20 ED Note-Physician ED Note-Physician Basic Information Time Seen: Sadiq Reis DO 06/22/2024 11:03 Chief Complaint pt to ER c/o sudden onset L flank pain. Pt also c/o nausea and vomiting and chills. Denies SOB/CP. Pt given 4mg zofran and 50mcg fentanyl in squad. pt also c/o lower leg swelling. History of Present Illness 63-year-old female to the emergency department chief complaint of sudden onset of left-sided flank pain today. She reports that has been moving down from her flank into her lower abdomen now hurts in her bladder. She reports of mild nausea without vomiting. Denies any fever, sweats, chills. No chest pain or shortness of breath. Review of Systems A 10 point review of systems is negative except as noted above. Medical and Surgical History: Reviewed and noted Social history: Lives at home Tobacco: Denies Physical Exam Vitals & Measurements T: 36.6 ?C(Oral) HR: 79(Monitored) RR: 16 BP: 127/71 SpO2: 96% HT: 170 cm WT: 87.6 kg BMI: 30.31 VITALS: I have reviewed the triage vital signs. GENERAL: Well developed, well appearing adult in no acute distress. NEURO: Alert and oriented. Moves all extremities. Face is symmetric and expressive. EYES: PERRL. No scleral icterus or conjunctival injection. No discharge. HENT: Normocephalic, atraumatic. Hearing is grossly intact. Nares grossly patent and without discharge. Mucous membranes moist. NECK: No JVD. Patient moves neck without restriction. CARDIO: Rhythm regular. Normal rate. No murmur, rub, or gallop. Pulses equal bilaterally in the upper and lower extremity. No lower extremity edema. PULM: Lungs clear to auscultation in all castro. No wheezes, rales, or rhonchi. No conversational dyspnea. No splinting, stridor, or accessory muscle use. GI/: Abdomen is soft and non-tender. Normoactive bowel sounds. EXTREMITIES: Symmetric muscle bulk. No joint swelling. No clubbing, cyanosis, or deformity. SKIN: Warm and dry. Normal turgor. No rash or lesions appreciated. PSYCH: Mood, affect, and interaction is appropriate to the setting. Medical Decision Making 63-year-old female with left-sided flank pain. Vital stable, the patient is afebrile. Basic labs, CT scan ordered. Highly suspect kidney stone. Symptomatic medications. Patient agrees with this plan. CBC and chemistry without major abnormalities. Urinalysis without evidence of infection. CT scan does show a minimally obstructing 2 mm left UVJ calculus. Cons were discussed with the patient. She feels much improved after medications. She is able tolerate oral intake. She is appropriate for trial of outpatient passage at home. She is given urology referral. Urine strainer. She is given symptomatic medications. OARRS reviewed. Return precautions were discussed. All questions were answered. The patient was discharged home. Assessment/Plan Kidney stone (N20.0: Calculus of kidney) Ordered: oxycodone, 5 mg = 1 cap(s), Oral, q6hr, PRN Pain 8-10, # 12 cap(s), Refills(s) 0, Pharmacy: [id number], 170, cm, 06/22/24 11:00:00 EDT, Height/Length Dosing, 87.6, kg, 06/22/24 11:00:00 EDT, Weight Dosing Orders: ketorolac, 30 mg = 1 mL, Injection, IV Push, Once, Stop date 06/22/24 11:04:00 EDT, STAT, Start date 06/22/24 11:04:00 EDT, 06/22/24 11:04:00 EDT morphine, 4 mg = 1 mL, Injection, IV Push, Once, Stop date 06/22/24 11:04:00 EDT, STAT, Start date 06/22/24 11:04:00 EDT, 06/22/24 11:04:00 EDT naproxen, 500 mg = 1 tab(s), Oral, BID, PRN for pain, # 20 tab(s), Refills(s) 0, Pharmacy: [id number], 170, cm, 06/22/24 11:00:00 EDT, Height/Length Dosing, 87.6, kg, 06/22/24 11:00:00 EDT, Weight Dosing ondansetron, 4 mg = 1 tab(s), Oral, q8hr, PRN Nausea/Vomiting, # 16 tab(s), Refills(s) 0, Pharmacy: [facility], 170, cm, 06/22/24 11:00:00 EDT, Height/Length Dosing, 87.6, kg, 06/22/24 11:00:00 EDT, Weight Dosing ondansetron, 4 mg = 2 mL, Injection, IV Push, Once, Stop date 06/22/24 11:04:00 EDT, STAT, Start date 06/22/24 11:04:00 EDT, 06/22/24 11:04:00 EDT Sodium Chloride 0.9% intravenous solution, 1,000 mL, IV, Stop date 06/22/24 11:04:00 EDT, Start date 06/22/24 11:04:00 EDT tamsulosin, 0.4 mg = 1 cap(s), Oral, Daily, X 7 day(s), # 7 cap(s), Refills(s) 0, Pharmacy: [id number], 170, cm, 06/22/24 11:00:00 EDT, Height/Length Dosing, 87.6, kg, 06/22/24 11:00:00 EDT, Weight Dosing Basic Metabolic Panel CBC w/ Auto Diff CT Abdomen/Pelvis w/o Contrast ED Cardiac Monitoring eGFR Extra Blue Tube Extra SST Tube Saline Lock Insert UA with Cult Rflx Medications Administered Given ketorolac 30 mg/mL Inj 1 mL, 30 mg, IV Push morphine 4 mg/mL Inj, 4 mg, IV Push [id number] [F], 1000 mL, IV ondansetron 4 mg/2 mL Inj, 4 mg, IV Push Disposition Plan Patient Discharge Condition Stable Discharge Disposition Home Discharge Prescription List Prescriptions Flomax 0.4 mg Cap, 0.4 mg= 1 cap(s), Oral, Daily naproxen 500 mg Tab, 500 mg= 1 tab(s), Oral, BID, PRN oxyCODONE 5 mg Cap, (more content not included)... Normal [facility] Comment on above: Result Comment: Elec tronically Signed By: Sadiq Reis DO\.br\Date and Time Signed: 06/22/24 13:56 EDT ED Patient Summaryon 024 ED Patient Summary ED Patient Summary [place] [id number] Patient Discharge Instructions Person Information Name: SHONA MANZO Age: 63 Years Arrival Date: 06/22/2024 10:54:10 Discharge Diagnosis: Kidney stone Primary Care Physician: NEREYDA PALAFOX DO Provider Information Primary Provider: Sadiq Reis DO [employer] Lead Teacher:[place] The exam and treatment you received in the Emergency Department were for an urgent problem and are not intended as complete care. It is important that you follow up with a doctor, nurse practitioner, or physician?s night assistant for ongoing care. If your symptoms become worse or you do not improve as expected and you are unable to reach your usual health care provider, you should return to the Emergency Department. We are available 24 hours a day. SHONA MANZO has been given the following list of patient education materials, prescriptions and follow-up instructions: Follow-up Instructions: With: Address: When: Sahra Ocampo In 3 days 06/25/2024 Comments: Call Dr for diagnosis based follow up With: Address: When: NEREYDA PALAFOX [address] [place], [place] [phone] [facility] () In 3 days 06/25/2024 Comments: Call the office of your primary care doctor to arrange for follow-up within the above-stated timeframe. Follow-up with your primary care doctor about this ED visit. You should review your labs, imaging, and diagnoses from this ED visit with your primary care physician. There are occasionally non-emergent findings that require additional follow-up after your ED visit. If you were prescribed medications you should discuss possible side-effects and drug interactions with your pharmacist. Call 911 or go to the nearest Emergency Department if you develop any new or worsening symptoms. Seek immediate medical attention if you develop: worsening abdominal pain, new or worsening nausea, new or worsening vomiting, new or worsening diarrhea, chest pain, shortness of breath, pain with urination, problems urinating, fever, chills, weakness, or any new or worsening symptoms. Follow-up on incidentally visualized renal cyst. Recommend a repeat ultrasound when you are feeling improved for better characterization. In the event that this physician does not participate in your insurance network, please consult with your insurance company to find a nearby participating provider. Patient Education Materials: Kidney Stones; Dietary Guidelines to Help Prevent Kidney Stones A MESSAGE TO ALL PATIENTS REGARDING OPIOIDS PRESCRIPTION OPIOIDS: WHAT YOU NEED TO KNOW Prescription opioids can be used to help relieve [id number] pain and are often prescribed following a surgery or injury, or for certain health conditions. These medications can be an important part of the treatment but also come with serious risks. It is important to work with your healthcare provider to make sure you are getting the safest, most effective care. WHAT ARE THE RISKS AND SIDE EFFECTS OF OPIOID USE? Prescription opioids carry serious risks of addiction and overdose, especially with prolonged use. An opioid overdose, often marked by slowed breathing, can cause sudden . The use of prescription opioids can have a number of side effects as well, even when taken as directed: ? Tolerance?meaning you might need to take more of the medication for the same pain relief ? Physical dependence?meaning you have symptoms of withdrawal when a medication is stopped ? Increased sensitivity to pain ? Constipation ? Nausea, vomiting, and dry mouth ? Sleepiness and dizziness ? Confusion ? Depression ? Low levels of testosterone that can result in lower sex drive, energy, and strength ? Itching and sweating RISKS ARE GREATER WITH: ? History of drug misuse, substance use disorder, or overdose ? Mental health conditions (such as depression or anxiety) ? Sleep apnea ? Older age (65 years and older) ? Avoid alcohol while taking prescription opioids. Also, unless specifically advised by your health care provider, medications to avoid include: ? Benzodiazepines (such as Xanax or Valium) ? Muscle relaxants (such as Soma or Flexeril) ? Hypnotics (such as Ambien or Lunesta) ? Other prescription opioids KNOW YOUR OPTIONS Talk to your health care provider about ways to manage your pain that don?t involve prescription opioids. Some of these options may actually work better and have fewer risks and side effects. Options may include: ? Pain relievers such as acetaminophen, ibuprofen, and naproxen ? Some medication that are also used for depression or seizures ? Physical therapy and exercise ? Cognitive behavioral therapy, a psychological, goal-directed approach, in which patients learn how to modify physical, behavioral, and emotional triggers of pain and (more content not included)... [facility] EMS Documentationon 06-22-20 EMS Documentation Report Please click on link to see report Normal [facility] Comment on above: Result Comment: Miss ing Attachment - total size limit for all attachments exceeded [email or web address] Can be viewed in source system HEMATOLOGYOrdered By: SYSTEM SYSTEM on 06-22-2024 Basophils/100 WBC (Bld) 0.5 % Normal 0.0 - 2.0 % [facility] Basophils/Leukocytes Auto (Bld) [Pure # fraction] 0.0 E9/L Normal 0.0 - 0.2 E9/L [facility] Eosinophils (Bld) [#/Vol] 0.0 E9/L Normal 0.0 - 0.5 E9/L [facility] Eosinophils/100 WBC (Bld) 0.5 % Normal 0.0 - 8.0 % [facility] Erythrocyte distribution width (RBC) [Ratio] 14.1 % Normal 10.9 - 14.2 % [facility] Hematocrit (Bld) [Volume fraction] 37.1 % Normal 34.0 - 46.0 % [facility] Hemoglobin (Bld) [Mass/Vol] 12.8 g/dL Normal 12.0 - 16.0 gm/dL [facility] Lymphocytes (Bld) [#/Vol] 0.9 E9/L Low 1.0 - 4.0 E9/L [facility] Lymphocytes/100 WBC (Bld) 11.6 % Low 14.0 - 50.0 % [facility] MCH (RBC) [Entitic mass] 30.8 pg Normal 27.0 - 34.0 pg [facility] MCHC (RBC) [Mass/Vol] 34.7 g/dL Normal 31.4 - 36.0 gm/dL [facility] MCV (RBC) [Entitic vol] 89.0 fL Normal 80.0 - 100.0 fL [facility] Monocytes (Bld) [#/Vol] 0.4 E9/L Normal 0.2 - 1.0 E9/L [facility] Monocytes/100 WBC (Bld) 5.3 % Normal 4.0 - 14.0 % [facility] Neutrophils (Bld) [#/Vol] 6.0 E9/L Normal 2.0 - 7.5 E9/L [facility] Neutrophils/100 WBC (Bld) 82.1 % High 36.0 - 75.0 % [facility] Platelet 273.0 E9/L Normal 150.0 - 500.0 E9/L [facility] Platelet mean volume (Bld) [Entitic vol] 7.9 fL Normal 6.4 - 10.8 fL [facility] RBC (Bld) [#/Vol] 4.2 E12/L Low 4.3 - 5.9 E12/L [facility] WBC corrected for nucl RBC Auto (Bld) [#/Vol] 7.4 E9/L Normal 4.0 - 11.0 E9/L [facility] Pre-Arrival Noteon 4 Pre-Arrival Note Pre-Arrival Note Pre-Arrival Summary Name: , CARLY Current Date: 06/22/2024 10:55:33 EDT Gender: Date of : Age: 63 Pre-Arrival Type: EMS ETA: 06/22/2024 11:13:00 EDT Primary Care Physician: Presenting Problem: L flank pain Pre-Arrival User: Jenna Cruz RN Referring Source: Location: Completion Date/Time: 06/22/2024 10:44:00 [facility] Emergency Department Pre-Hospital Report Form ___ Vital Signs: 176/49; 81; 18RR; 100% 2L Pre-Hospital Report: Treatment in Route: 4 mg Zofran; 50mcg fent Response to Treatment: Misc. Issues: Normal [facility] UA with Cult Rflxon 06-22-20 24 Bacteria Auto Ql (U) Trace Normal Trace Fish [facility] Comment on above: Performed By: #### 4 [id number] #### [facility] [address] [place] [address] Bilirubin Ql (U) Negative Normal Negative [facility] Comment on above: Performed By: #### 4 [id number] #### [facility] [address] [place] [address] Clarity (U) Clear Normal Clear [facility] Comment on above: Performed By: #### 4 [id number] #### [facility] [address] [place] [address] Color (U) Yellow Normal Yellow [facility] Comment on above: Result Comment: Micr oscopic readings are only performed on those samples that meet specific criteria set forth by [facility]. Performed By: #### 4 [id number] #### [facility] [address] [place] [address] Epithelial cells.squamous Auto (Urine sed) [#/Area] 0-2 Invalid Interpretation Code [facility] Comment on above: Performed By: #### 4 [id number] #### [facility] [address] [place] [address] Glucose Ql (U) Negative Normal Negative [facility] Comment on above: Performed By: #### 4 [id number] #### [facility] [address] [place] [address] Hemoglobin Auto test strip (U) [Mass/Vol] 3+ mg/dL Abnormal Negative [facility] Comment on above: Performed By: #### 4 [id number] #### [facility] [address] [place] [address] Ketones Auto test strip Ql (U) Negative Normal Negative [facility] Comment on above: Performed By: #### 4 [id number] #### [facility] [address] [place] [address] Leukocyte esterase Auto test strip Ql (U) Negative Normal Negative [facility] Comment on above: Performed By: #### 4 [id number] #### [facility] [address] [place] [address] Mucus Auto Ql (U) Trace Normal Negative [facility] Comment on above: Performed By: #### 4 [id number] #### [facility] [address] [place] [address] Nitrite Auto test strip Ql (U) Negative Normal Negative [facility] Comment on above: Performed By: #### 4 [id number] #### [facility] [address] [place] [address] pH (U) 7.0 [pH] Invalid Interpretation Code 5.0-9.0 [facility] Comment on above: Performed By: #### 4 [id number] #### [facility] [address] [place] [address] Protein Ql (U) Trace Abnormal Negative [facility] Comment on above: Performed By: #### 4 [id number] #### [facility] [address] [place] [address] RBC Ql (U) >75 Abnormal 0-3 [facility] Comment on above: Performed By: #### 4 [id number] #### [facility] [address] [place] [address] Specific gravity (U) [Rel density] 1.018 Invalid Interpretation Code 1.005-1.030 [facility] Comment on above: Performed By: #### 4 [id number] #### [facility] [address] [place] [address] Urobilinogen (U) [Mass/Vol] Negative Normal Negative [facility] Comment on above: Performed By: #### 4 [id number] #### [facility] [address] [place] [address] WBC Auto (Urine sed) [#/Area] 0-5 Normal 0-5 [facility] Comment on above: Performed By: #### 4 [id number] #### [facility] [address] [place] [address] Type of Urine collection method Clean Catch Normal [facility] Comment on above: Performed By: #### 4 [id number] #### [facility] [address] [place] [address] URINALYSISOrdered By: SYSTEM SYSTEM on 06-22-2024 Bacteria Auto Ql (U) Trace /HPF Normal Trace/HPF [facility] UA Auto SS Bilirubin Ql (U) Negative Normal Negativemg/dL [facility] UA Auto SS Clarity (U) Clear (06/22/24 12:05 PM) Normal Clear [facility] UA Auto SS Color (U) Yellow 1 (06/22/24 12:05 PM) Normal Yellow [facility] UA Auto SS Comment on above: Interpretive Data: M icroscopic readings are only performed on those samples that meet specific criteria set forth by [facility]. Epithelial cells.squamous Auto (Urine sed) [#/Area] 0-2 graded/HPF Invalid Interpretation Code [facility] UA Auto SS Glucose Ql (U) Negative Normal Negativemg/dL [facility] UA Auto SS Hemoglobin Auto test strip (U) [Mass/Vol] 3+ mg/dL Invalid Interpretation Code Negativemg/dL [facility] UA Auto SS Ketones Auto test strip Ql (U) Negative Normal Negativemg/dL [facility] UA Auto SS Leukocyte esterase Auto test strip Ql (U) Negative Normal NegativeLeu/u L [facility] UA Auto SS Mucus Auto Ql (U) Trace graded/LPF Normal Negati vegrade d/LPF [facility] UA Auto SS Nitrite Auto test strip Ql (U) Negative Normal Negativemg/dL [facility] UA Auto SS pH (U) 7.0 *NA* (06/22/24 12:05 PM) Invalid Interpretation Code 5.0 - 9.0 [facility] UA Auto SS Protein Ql (U) Trace mg/dL Invalid Interpretation Code Negativemg/dL [facility] UA Auto SS RBC Ql (U) >75 graded/HPF Invalid Interpretation Code 0-3graded/HPF [facility] UA Auto SS Specific gravity (U) [Rel density] 1.018 *NA* (06/22/24 12:05 PM) Invalid Interpretation Code 1.005 - 1.030 [facility] UA Auto SS Urobilinogen (U) [Mass/Vol] Negative Normal Negativemg/dL [facility] UA Auto SS WBC Auto (Urine sed) [#/Area] 0-5 graded/HPF Normal 0-5graded/HPF [facility] UA Auto SS URINALYSISOrdered By: Sadiq Reis on 06-22-2024 UA Spec Desc Clean Catch (06/22/24 12:05 PM) Normal [facility] UA Auto SS Work Phone: eGFRon 06-22-2024 eGFR 72 mL/min/1.73 m2 Normal >=59 [facility] Comment on above: Order Comment: Order added by Discern Expert. Performed By: #### 1 [id number] #### [facility] [address] [place] [address] CBC with Diffon 07-13-2023 Abs. Basophil Normal 0.0-0.2 [facility] Comment on above: Performed By: #### Z FAST, CP, TSHX, CDP #### [facility] [address] [id number] Machine Quilt Stuffer: Jacquelin Leonard MD #### GLYHGB, LIPR #### [address] [place] [address] Machine Quilt [employer]uffer: Isak Lott MD Abs.Imm.Granulocyte Normal 0.00-0.30 [facility] Comment on above: Performed By: #### Néstor FAST, CP, TSHX, CDP #### [facility] [address] [id number] [employer]: Jacquelin Leonard MD #### GLYHGB, LIPR #### [address] [address] [employer]: Isak Lott MD Abs.Neutrophil (Seg) 2.56 k/uL Normal 2.5-7.0 [facility] Comment on above: Performed By: #### Z FAST, CP, TSHX, CDP #### [facility] [address] [place] [address] Machine [employer]uffer: Jacquelin Leonard MD #### GLYHGB, LIPR #### [address] [place] [address] Machine Qu[employer]uffer: Isak Lott MD Basophil Normal 0-2 [facility] Comment on above: Performed By: #### Z FAST, CP, TSHX, CDP #### [facility] [address] [place] [address] Machine [employer]uffer: Jacquelin Leonard MD #### GLYHGB, LIPR #### [address] [id number] [employer]: Isak Lott MD Eosinophils (Bld) [#/Vol] 0.09 10*3/uL Normal 0.0-0.4 [facility] Comment on above: Performed By: #### Z FAST, CP, TSHX, CDP #### [facility] [address] [place] [address] Machine [employer]uffer: Jacquelin Leonard MD #### GLYHGB, LIPR #### [place] [address] Machine [employer]uffer: Isak Lott MD Eosinophils/100 WBC (Bld) 2 % Normal 0-5 [facility] Comment on above: Performed By: #### Z FAST, CP, TSHX, CDP #### [facility] [address] [place] [address] Machine Quilt Stuffer: Jacquelin Leonard MD #### GLYHGB, LIPR #### [place] [address] Machine [employer]uffer: Isak Lott MD Immature Granulocyte Normal 0 [facility] Comment on above: Performed By: #### Z FAST, CP, TSHX, CDP #### [facility] [address] [place] [address] Machine [employer]uffer: Jacquelin Leonard MD #### GLYHGB, LIPR #### [place] [address] Machine Quilt Stuffer: Isak Lott MD Lymphocytes (Bld) [#/Vol] 1.62 10*3/uL Normal 1.0-4.8 [facility] Comment on above: Performed By: #### Z FAST, CP, TSHX, CDP #### [facility] [address] [id number] Machine [employer]uffer: Jacquelin Leonard MD #### GLYHGB, LIPR #### [address] [id number] Machine [employer]: Isak Lott MD Lymphocytes/100 WBC (Bld) 36 % Normal 15-40 [facility] Comment on above: Performed By: #### Z FAST, CP, TSHX, CDP #### [facility] [address] [place], [place] [id number] Machine Quilt Stuffer: Jacquelin Leonard MD #### GLYHGB, LIPR #### [place] [id number] Machine Qu[employer]uffer: Isak Lott MD Monocytes (Bld) [#/Vol] 0.23 10*3/uL Normal 0.0-1.0 [facility] Comment on above: Performed By: #### Néstor FAST, CP, TSHX, CDP #### [facility] [address] [place], [place] [id number] Machine [employer] Stuffer: Jacquelin Leonard MD #### GLYHGB, LIPR #### [place] [id number] Machine [employer]uffer: Isak Lott MD Monocytes/100 WBC (Bld) 5 % Normal 4-8 M [facility] Comment on above: Performed By: #### Z FAST, CP, TSHX, CDP #### [facility] [address] [place] [address] Machine Quilt Stuffer: Jacquelin Leonard MD #### GLYHGB, LIPR #### [place] [id number] Machine Quilt Stuffer: Isak Lott MD Morphology Reji (Bld) [Interp] Platelet morphology normal. Normal [facility] Comment on above: Result Comment: RBC morphology normal. Manual Differential Performed Performed By: #### Z FAST, CP, TSHX, CDP #### [facility] [address] [place], [place] [id number] Machine Quilt Stuffer: Jacquelin Leonard MD #### GLYHGB, LIPR #### [address] [place], [place] 1962608 Machine Quilt Stuffer: Isak Lott MD Neutrophil (Seg) 57 % Normal 47-75 [facility] Comment on above: Performed By: #### Z FAST, CP, TSHX, CDP #### [facility] [address] [place], [place] [id number] Machine Quilt Stuffer: Jacquelin Leonard MD #### GLYHGB, LIPR #### [address] [id number] Machine [employer]: Isak Lott MD Erythrocyte distribution width (RBC) [Ratio] 13.8 % Normal 12.1-15.2 [facility] Comment on above: Performed By: #### Néstor FAST, CP, TSHX, CDP #### [facility] [address] [place], [place] [id number] Machine [employer] Stuffer: Jacquelin Leonard MD #### GLYHGB, LIPR #### [address] [id number] Machine [employer]: Isak Lott MD Hematocrit (Bld) [Volume fraction] 41.6 % Normal 36-46 [facility] Comment on above: Performed By: #### Néstor FAST, CP, TSHX, CDP #### [facility] [address] [place], [place] 8784890 Machine [employer] Stuffer: Jacquelin Leonard MD #### GLYHGB, LIPR #### [address] [place], [place] [id number] Machine [employer] Stuffer: Isak Lott MD Hemoglobin (Bld) [Mass/Vol] 14.0 g/dL Normal 12.0-16.0 [facility] Comment on above: Performed By: #### Z FAST, CP, TSHX, CDP #### [facility] [address] [place], [place] [id number] Machine [employer]ilt Stuffer: Jacquelin Leonard MD #### GLYHGB, LIPR #### [address] [id number] [employer]uffer: Isak Lott MD MCH (RBC) [Entitic mass] 30.5 pg Normal 26-34 [facility] Comment on above: Performed By: #### Z FAST, CP, TSHX, CDP #### [facility] [address] [place] [address] Machine Quilt Stuffer: Jacquelin Leonard MD #### GUSTAVOHGB, LIPR #### [address] [id number] Machine [employer] Stuffer: Isak Lott MD MCHC (RBC) [Mass/Vol] 33.7 g/dL Normal 31-37 [facility] Comment on above: Performed By: #### Z FAST, CP, TSHX, CDP #### [facility] [address] [place] [address] Machine Quilt Stuffer: Jacquelin Leonard MD #### GLYHGB, LIPR #### [address] [place], [place] [id number] Machine Quilt Stuffer: Isak Lott MD MCV (RBC) [Entitic vol] 90.3 fL Normal 80-100 M [facility] Comment on above: Performed By: #### Z FAST, CP, TSHX, CDP #### [facility] [address] [place] [address] Machine Quilt Stuffer: Jacquelin Leonard MD #### GLYHGB, LIPR #### [address] [place], [place] 1902708 Machine Quilt Stuffer: Isak Lott MD Platelets (Bld) [#/Vol] 256 10*3/uL Normal 140-450 [facility] Comment on above: Performed By: #### Z FAST, CP, TSHX, CDP #### [facility] [address] [place] [address] Machine Quilt Stuffer: Jacquelin Leonard MD #### GLYHGB, LIPR #### [facility] [address] [place] [address] Machine [employer]uffer: Isak Lott MD RBC (Bld) [#/Vol] 4.61 10*6/uL Normal 4.0-5.2 [facility] Comment on above: Performed By: #### Z FAST, CP, TSHX, CDP #### [facility] [address] [place], [place] [phone] Machine Quilt Stuffer: Jacquelin Leonard MD #### GLYHGB, LIPR #### [address] [address] Machine [employer]uffer: Isak Lott MD WBC (Bld) [#/Vol] 4.5 10*3/uL Normal 3.5-11.0 [facility] Comment on above: Performed By: #### Néstor FAST, CP, TSHX, CDP #### [facility] [address] [place], [place] 8303790 Machine Quilt Stuffer: Jacquelin Leonard MD #### GLYHGB, LIPR #### [address] [address] Machine [employer]: Isak Lott MD Comp Metabolic Profon 2022 Albumin [Mass/Vol] 4.3 g/dL Normal 3.5-5.2 [facility] Comment on above: Performed By: #### Z FAST, CP, TSHX, CDP #### [facility] [address] [place], [place] 8459390 Machine Quilt Stuffer: Jacquelin Leonard MD #### GLYHGB, LIPR #### [facility] [employer] [address] [place] [address] Machine Quilt Stuffer: Isak Lott MD Alkaline Phos 98 U/L Normal 35-104 [facility] Comment on above: Performed By: #### Néstor FAST, CP, TSHX, CDP #### [facility] [address] [place], [place] [phone] Machine Quilt Stuffer: Jacquelin Leonrad MD #### GLYHGWellington, LIPR #### [address] [phone] Machine Quilt Stuffer: Isak Lott MD ALT [Catalytic activity/Vol] 14 U/L Normal 5-33 [facility] Comment on above: Performed By: #### Néstor FAST, CP, TSHX, CDP #### [facility] [address] [place], [place] [phone] Machine Quilt Stuffer: Jacquelin Leonard MD #### SOHAIL, LIPR #### [address] [address] [employer]: Isak Lott MD Anion gap [Moles/Vol] 7 mmol/L Low 9-17 [facility] Comment on above: Performed By: #### Néstor FAST, CP, TSHX, CDP #### [facility] [address] [place], [place] 9952690 Machine Quilt Stuffer: Jacquelin Leonard MD #### SOHAIL, LIPR #### [address] [address] Machine [employer]uffer: Isak Lott MD AST [Catalytic activity/Vol] 21 U/L Normal <32 [facility] Comment on above: Performed By: #### Néstor FAST, CP, TSHX, CDP #### [facility] [address] [place], [place] [phone] Machine Quilt Stuffer: Jacquelin Leonard MD #### GLYHGWellington, LIPR #### [address] [phone] Machine Qu[employer] Stuffer: Isak Lott MD Bilirubin [Mass/Vol] 0.5 mg/dL Normal 0.3-1.2 [facility] Comment on above: Performed By: #### Z FAST, CP, TSHX, CDP #### [facility] [address] [place], [place] 8009290 Machine Quilt Stuffer: Jacquelin Leonard MD #### GLYHGB, LIPR #### [address] [phone] Machine Qu[employer] Stuffer: Isak Lott MD BUN/CRE Ratio 14 Normal 9-20 [facility] Comment on above: Performed By: #### Néstor FAST, CP, TSHX, CDP #### [facility] [address] [place], [place] 9171590 Machine Quilt Stuffer: Jacquelin Leonard MD #### GUSTAVOHGWellington, LIPR #### [address] [address] Machine Quilt Stuffer: Isak Lott MD Calcium [Mass/Vol] 9.3 mg/dL Normal 8.6-10.4 [facility] Comment on above: Performed By: #### Néstor FAST, CP, TSHX, CDP #### [facility] [address] [place] [address] Machine Quilt Stuffer: Jacquelin Leonard MD #### GLYHGB, LIPR #### [address] [address] Machine Qu[employer]uffer: Isak Lott MD Chloride [Moles/Vol] 103 mmol/L Normal 98-107 [facility] Comment on above: Performed By: #### Z FAST, CP, TSHX, CDP #### [facility] [address] [place] [address] Machine Quilt Stuffer: Jacquelin Leonard MD #### GLYHGWellington, LIPR #### [address] [id number] Machine Qu[employer] Stuffer: Isak Lott MD CO2 [Moles/Vol] 28 mmol/L Normal 20-31 [facility] Comment on above: Performed By: #### Z FAST, CP, TSHX, CDP #### [facility] [address] [place] [address] Machine Quilt Stuffer: Jacquelin Leonard MD #### GLYHGWellington, LIPR #### [facility] [address] [place] [address] Machine Quilt Stuffer: Isak Lott MD Creatinine [Mass/Vol] 0.7 mg/dL Normal 0.5-0.9 [facility] Comment on above: Performed By: #### Néstor FAST, CP, TSHX, CDP #### [facility] [address] [place], [place] 3375690 Machine Quilt Stuffer: Jacquelin Leonard MD #### GUSTAVOHGWellington, LIPR #### [address] [phone] Machine [employer] Stuffer: Isak Lott MD GFR/1.73 sq M.predicted among non-blacks MDRD (S/P/Bld) [Vol rate/Area] mL/min/{1.73_m2} Normal >60 [facility] Comment on above: Result Comment: These results are not intended for use in patients <18 years of age. eGFR results are calculated without a race factor using the 2020 CKD-EPI equation. Careful clinical correlation is recommended, particularly when comparing to results calculated using previous equations. The CKD-EPI equation is less accurate in patients with extremes of muscle mass, extra-renal metabolism of creatine, excessive creatine ingestion, or following therapy that affects renal tubular secretion. Performed By: #### Z FAST, CP, TSHX, CDP #### [facility] [address] [place], [place] [phone] Machine [employer] Stuffer: Jacquelin Leonard MD #### GLYHGB, LIPR #### [facility] [address] [place], [place] [phone] Machine Quilt Stuffer: Isak Lott MD Glucose [Mass/Vol] 118 mg/dL High 70-99 [facility] Comment on above: Performed By: #### Néstor FAST, CP, TSHX, CDP #### [facility] [address] [place] [address] Machine Quilt Stuffer: Jacquelin Leonard MD #### GLYHGB, LIPR #### [address] [id number] Machine Quilt Stuffer: Isak Lott MD Potassium [Moles/Vol] 4.0 mmol/L Normal 3.7-5.3 [facility] Comment on above: Performed By: #### Néstor FAST, CP, TSHX, CDP #### [facility] [address] [place], [place] 3933790 Machine Quilt Stuffer: Jacquelin Leonard MD #### GLYHGWellington, LIPR #### [address] [phone] Machine Quilt Stuffer: Isak Lott MD Protein [Mass/Vol] 7.7 g/dL Normal 6.4-8.3 [facility] Comment on above: Performed By: #### Néstor FAST, CP, TSHX, CDP #### [facility] [address] [place], [place] 1216590 Machine Quilt Stuffer: Jacquelin Leonard MD #### GLYHGB, LIPR #### [address] [id number] Machine Quilt Stuffer: Isak Lott MD Sodium [Moles/Vol] 138 mmol/L Normal 135-144 [facility] Comment on above: Performed By: #### Z FAST, CP, TSHX, CDP #### [facility] [address] [place], [place] 9275090 Machine Quilt Stuffer: Jacquelin Leonard MD #### GLYHGWellington, LIPR #### [address] [place] [phone] Machine Quilt Stuffer: Isak Lott MD Urea nitrogen [Mass/Vol] 10 mg/dL Normal 8-23 [facility] Comment on above: Performed By: #### Néstor FAST, CP, TSHX, CDP #### [facility] [address] [place], [place] [id number] Machine Quilt Stuffer: Jacquelin Leonard MD #### GLYHGB, LIPR #### [facility] [employer] [facility] [place], [place] [phone] Machine Quilt Stuffer: Isak Lott MD Hemoglobin A1Con 6 Glucose [Mass/Vol] 111 mg/dL Normal [facility] Comment on above: Result Comment: The ADA and AACC recommend providing the estimated average glucose result to permit better patient understanding of their HBA1c result. Performed By: #### Néstor FAST, CP, TSHX, CDP #### [facility] [address] [place], [place] [phone] Machine Quilt Stuffer: Jacquelin Leonard MD #### GLYHGB, LIPR #### [facility] [employer] [facility] [place], [place] [phone] Machine Quilt Stuffer: Isak Lott MD HbA1c (Bld) [Mass fraction] 5.5 % Normal 4.0-6.0 [facility] Comment on above: Performed By: #### Néstor FAST, CP, TSHX, CDP #### [facility] [address] [place], [place] [phone] Machine Quilt Stuffer: Jacquelin Leonard MD #### GLYHGB, LIPR #### [facility] [employer] [address] [place], [place] [phone] Machine Quilt Stuffer: Isak Lott MD Lipid Profileon Cholesterol [Mass/Vol] 157 mg/dL Normal <200 [facility] Comment on above: Result Comment: Cholesterol Guidelines: <200 Desirable 200-240 Borderline >240 Undesirable Performed By: #### Z FAST, CP, TSHX, CDP #### [facility] [address] [place], [place] 6885890 Machine Quilt Stuffer: Jacquelin Leonard MD #### GLYHGB, LIPR #### [facility] [facility] [address] [place], [place] [id number] Machine Quilt Stuffer: Isak Lott MD Cholesterol in HDL [Mass/Vol] 72 mg/dL Normal >40 [facility] Comment on above: Result Comment: HDL Guidelines: <40 Undesirable 40-59 Borderline >59 Desirable Performed By: #### Néstor FAST, CP, TSHX, CDP #### [facility] [address] [place] [address] Machine Quilt Stuffer: Jacquelin Leonard MD #### GLYHGB, LIPR #### [facility] [place], [place] [address] Machine Quilt Stuffer: Isak Lott MD Cholesterol in LDL [Mass/Vol] 72 mg/dL Normal 0-130 [facility] Comment on above: Result Comment: LDL Guidelines: <100 Desirable 100-129 Near to/above Desirable 130-159 Borderline >159 Undesirable Direct (measured) LDL and calculated LDL are not interchangeable tests. Performed By: #### Néstor FAST, CP, TSHX, CDP #### [facility] [address] [place], [place] [id number] Machine Qu[employer] Stuffer: Jacqeulin Leonard MD #### GLYHGWellington, LIPR #### [facility] [address] [place], [place] [id number] Machine Quilt Stuffer: Isak Lott MD Cholesterol.total/Niesha sterol in HDL [Mass ratio] 2.2 {ratio} Normal <5 [facility] Comment on above: Performed By: #### Néstor FAST, CP, TSHX, CDP #### [facility] [address] [place], [place] [id number] Machine Qu[employer] Stuffer: Jacquelin Leonard MD #### GLYHGB, LIPR #### [facility] [address] [place], [place] [id number] Machine Quilt Stuffer: Isak Lott MD Triglyceride [Mass/Vol] 65 mg/dL Normal <150 M [facility] Comment on above: Result Comment: Triglyceride Guidelines: <150 Desirable 150-199 Borderline 200-499 High >499 Very high Based on AHA Guidelines for fasting triglyceride, August 2012. Performed By: #### Z FAST, CP, TSHX, CDP #### [facility] [address] [place] [address] Machine Quilt Stuffer: Jacquelin Leonard MD #### GLYHGB, LIPR #### [address] [place], [place] [id number] Machine Quilt Stuffer: Isak Lott MD Patient fasting?on 3 Patient fasting? YES Normal [facility] Comment on above: Performed By: #### Z FAST, CP, TSHX, CDP #### [facility] [address] [place], [place] [id number] Machine Quilt Stuffer: Jacquelin Leonard MD #### GLYHGWellington, LIPR #### [address] [place], [place] [id number] Machine Quilt Stuffer: Isak Lott MD TSH w/reflex to FT4on 2022 Thyroid Stim. Horm. 4.52 uIU/mL Normal 0.30-5.00 [facility] Comment on above: Performed By: #### Z FAST, CP, TSHX, CDP #### [facility] [address] [place], [place] [id number] Machine Quilt Stuffer: Jacquelin Leonard MD #### GLYASHLEY, LIPR #### [address] [place], [place] [id number] Machine Quilt Stuffer: Isak Lott MD [facility] DIGITAL SCREEN BILA TERALOrdered By: Nereyda Palafox on 07-13-2021 BI-RADS 1 - Negative, no evidence of malignancy. Normal interval followup in 12 months. OVERALL ASSESSMENT- NEGATIVE A letter of notification will be sent to the patient regarding the results. [employer] Phone: HISTORY: Screening. TECHNIQUE: Bilateral digital screening mammogram with CAD. 2-D and 3-D tomography. FINDINGS: Two views of each breast show scattered areas of fibroglandular density. No change from prior studies, the most recent of 11/29/2019. Suspicious calcifications: None. Suspicious mass: None. (If skin markers were applied, circles represent skin lesions and linear markers represent scars.) [employer] Phone: [employer] Phone: Vaginitis DNA ProbeOrdered B y: Nereyda Bolañosbriannesangeetha on 05-15-2021 Direct Exam Negative [employer] Phone: Direct Exam Method of testing is a DNA probe intended for detection and identification of Mat species, Gardnerella vaginalis, and Trichomonas vaginalis nucleic acid in vaginal fluid specimens from patients with symptoms of vaginitis/vaginosis . [employer] Phone: Special Requests NOT REPORTED [employer] Phone: Specimen Description .VAGINA [employer] Phone: [employer] Phone: Basic Metabolic Panel w/ Ref sergio to MGOrdered By: Gabino Salazar on 12-02-2019 Anion gap [Moles/Vol] 13 mmol/L 9 - 17 mmol/L [employer] Phone: Bun/Cre Ratio 26 High [employer] Work Phone: Calcium [Mass/Vol] 9.8 mg/dL 8.6 - 10. 4 mg/dL [employer] Phone: Chloride [Moles/Vol] 103 mmol/L 98 - 10 7 mmol/L [employer] Phone: CO2 [Moles/Vol] 23 mmol/L 20 - 31 mmol/L [employer] Phone: Creatinine [Mass/Vol] 0.85 mg/dL 0.5 - 0.9 mg/dL [employer] Phone: GFR >60 >60 mL/min [employer] Phone: GFR Comment [employer] Phone: Comment on above: Average GFR for 50-5 9 years old: 93 mL/min/1.73sq m Chronic Kidney Disease: <60 mL/min/1.73sq m Kidney failure: <15 mL/min/1.73sq m eGFR calculated using average adult body mass. Additional eGFR calculator available at: http://www.66. com/multiple_crcl_2012.htm GFR Non- >60 >60 mL/min [employer] Phone: GFR Staging NOT REPORTED [employer] Work Phone: Glucose [Mass/Vol] 108 mg/dL High 70 - 99 mg/dL [facility] [employer] Phone: Interpretation and review of laboratory results Abnormal [employer] Phone: Potassium [Moles/Vol] 4.5 mmol/L 3.7 - 5.3 mmol/L [employer] Phone: Sodium [Moles/Vol] 139 mmol/L 135 - 144 mmol/L [employer] Phone: Urea nitrogen [Mass/Vol] 22 mg/dL High 6 - 20 mg/dL [employer] Phone: Brain Natriuretic PeptideOrd ered By: Gabino Salazar on 12-02-2019 BNP Interpretation Pro-BNP Reference Range: [employer] Phone: Comment on above: Rule Out: <300 Dc Zone: Age <50 300-450 Age 50-75 300-900 Age >75 300-1800 Usually represents mild to moderate HF but other cardiopulmonary causes cannot be ruled out. Rule In: Age <50 >450 Age 50-75 >900 Age >75 >1800 Natriuretic peptide B (Bld) [Mass/Vol] 61 pg/mL <300 [employer] Phone: Comment on above: Pro-BNP results negrito ot be compared to BNP results. CBC Auto DifferentialOrdered By: Gabino Salazar on 12-02-2019 Absolute Eos # 0.10 [facility] Work Phone: Absolute Immature Granulocyte NOT REPORTED [employer] Phone: Absolute Lymph # 1.60 [employer] [facility] Work Phone: Absolute Atlantic # 0.50 [employer] Work Phone: Basophils (Bld) [#/Vol] 0.00 10*3/uL [place] Work Phone: Basophils/100 WBC (Bld) 1 % 0 - 2 % [employer] Phone: Differential Type YES [employer] Work Phone: Eosinophils/100 WBC (Bld) 2 % 0 - 5 % [employer] Phone: Erythrocyte distribution width (RBC) [Ratio] 13.2 % 12.1 - 15.2 % [employer] Phone: Hematocrit (Bld) [Volume fraction] 40.0 % 36 - 46 % [employer] Phone: Hemoglobin (Bld) [Mass/Vol] 13.7 g/dL 12 - 16 g/dL [employer] Phone: Immature Granulocytes NOT REPORTED 0 % [employer] Phone: Lymphocytes/100 WBC (Bld) 28 % 15 - 40 % [employer] Phone: MCH (RBC) [Entitic mass] 30.7 pg 26 - 34 pg [employer] Phone: MCHC (RBC) [Mass/Vol] 34.2 g/dL 31 - 37 g/dL [employer] Work Phone: MCV (RBC) [Entitic vol] 89.6 fL 80 - 100 fL [facility] [employer] Work Phone: Monocytes/100 WBC (Bld) 8 % 4 - 8 % M [facility] [employer] Work Phone: MPV NOT REPORTED 6 - 12 fL [facility] [employer] Work Phone: NRBC Automated NOT REPORTED per 100 WBC [facility] [employer] Work Phone: Platelet Estimate NOT REPORTED [facility] [employer] Work Phone: Platelets (Bld) [#/Vol] 298 10*3/uL [facility] [employer] Work Phone: RBC (Bld) [#/Vol] 4.46 10*6/uL 4 - 5.2 m/uL [facility] [employer] Work Phone: RBC morphology finding Nom (Bld) NOT REPORTED [facility] [employer] Work Phone: Segmented neutrophils/100 WBC (Bld) 61 % 47 - 75 % [facility] [employer] Work Phone: Segs Absolute 3.60 [facility] Work Phone: WBC (Bld) [#/Vol] 5.8 10*3/uL [facility] [employer] Work Phone: WBC Morphology NOT REPORTED [facility] Work Phone: TroponinOrdered By: Ting Salazar on 12-02-2019 Troponin Interp [facility] Work Phone: Comment on above: Reference Range: <0.03 Within reference range. 0.03-0.09 Possible myocardial damage. Repeat at appropriate intervals to rule out chronic elevation. >= 0.10 Indicative of myocardial damage. Patients with high levels of Biotin oral intake (i.e >5mg/day) may have falsely decreased Troponin T levels. Samples collected within 8 hours of biotin intake may require additional information for diagnosis. Troponin T <0.03 <0.03 ng/mL [place] Work Phone: Comment on above: Troponin T results c annot be compared to Troponin-I results. Troponin, High Sensitivity NOT REPORTED 0 - 14 ng/L [employer] Phone: Troponin Interp [employer] [facility] Work Phone: Comment on above: Reference Range: <0.03 Within reference range. 0.03-0.09 Possible myocardial damage. Repeat at appropriate intervals to rule out chronic elevation. >= 0.10 Indicative of myocardial damage. Patients with high levels of Biotin oral intake (i.e >5mg/day) may have falsely decreased Troponin T levels. Samples collected within 8 hours of biotin intake may require additional information for diagnosis. Troponin T <0.03 <0.03 ng/mL [employer] Phone: Comment on above: Troponin T results c annot be compared to Troponin-I results. Troponin, High Sensitivity NOT REPORTED 0 - 14 ng/L [employer] Phone: XR CHEST PORTABLEOrdered By: Gabino Salazar on 12-02-2019 No acute cardiopulmonary process. [employer] Phone: EXAM: XR CHEST PORTABLE CLINICAL HISTORY: 59-year-old female presenting with chest pain and shortness of breath. TECHNIQUE: 1 view chest x-ray. COMPARISON: Chest x-ray dated 11/17/2017. FINDINGS: No pneumothorax, pleural effusion or focal airspace consolidation. Heart is normal in size. Bony thorax is unremarkable. [employer] Phone: Abe, Mhpn Incoming Radiant Results From [employer]evolso - 12/02/2019 6:01 PM EST EXAM: XR CHEST PORTABLE CLINICAL HISTORY: 59-year-old female presenting with chest pain and shortness of breath. TECHNIQUE: 1 view chest x-ray. COMPARISON: Chest x-ray dated 11/17/2017. FINDINGS: No pneumothorax, pleural effusion or focal airspace consolidation. Heart is normal in size. Bony thorax is unremarkable. IMPRESSION: No acute cardiopulmonary process. [employer] Phone: Vital Signs Date Time Vital Sign Value Performing Clinician Manuela lima 06-24-2025 13:29-0400 Body height 171.45 cm [facility] 06-24-2025 13:29-0400 Body mass index (BMI) [Ratio] 26.6 kg/m2 [facility] 06-24-2025 13:29-0400 Body weight 78.52 kg [facility] 06-24-2025 13:29-0400 Diastolic blood pressure 84 mm[Hg] [facility] 06-24-2025 13:29-0400 Systolic blood pressure 143 mm[Hg] [facility] 07-10-2024 11:40-0400 Body height 171.5 cm Margret Rodriguez MD Work Phone: [facility] 07-10-2024 11:40-0400 Body mass index (BMI) [Ratio] 28.7 kg/m2 Margret Rodriguez MD Work Phone: [facility] 07-10-2024 11:40-0400 Body temperature 98.6 [degF] Margret Rodriguez MD Work Phone: [facility] 07-10-2024 11:40-0400 Body weight 84.37 kg Margret Rodriguez MD Work Phone: [facility] 07-10-2024 11:40-0400 Diastolic blood pressure 79 mm[Hg] Margret Rodriguez MD Work Phone: [facility] [employer] 07-10-2024 11:40-0400 Heart rate 87 /min Margret Rodriguez MD Work Phone: [facility] [employer] 07-10-2024 11:40-0400 Respiratory rate 18 /min Margret Rodriguez MD Work Phone: [facility] [employer] 07-10-2024 11:40-0400 SaO2% (BldA) [Mass fraction] 94 % Margret Rodriguez MD Work Phone: [facility] [employer] 07-10-2024 11:40-0400 Systolic blood pressure 124 mm[Hg] Margret Rodriguez MD Work Phone: [facility] 06-22-2024 12:30-0400 Diastolic blood pressure 71 mm[Hg] Sadiq Chato [facility] 06-22-2024 12:30-0400 Heart rate 79 /min Sadiq Chato [facility] 06-22-2024 12:30-0400 Mean blood pressure 90 mm[Hg] Sadiq Chato [facility] 06-22-2024 12:30-0400 Respiratory rate 16 /min Sadiq Chato [facility] 06-22-2024 12:30-0400 SaO2% (BldA) [Mass fraction] 96 % Sadiq Chato [facility] 06-22-2024 12:30-0400 Systolic blood pressure 127 mm[Hg] Sadiq Chato [facility] 06-22-2024 12:12-0400 Hourly Rounding Sadiq Chato [facility] 06-22-2024 11:49-0400 Diastolic blood pressure 68 mm[Hg] Sadiq Chato [facility] 06-22-2024 11:49-0400 Heart rate 80 /min Sadiq Chato [facility] 06-22-2024 11:49-0400 Hourly Rounding Sadiq Chato [facility] 06-22-2024 11:49-0400 Mean blood pressure 86 mm[Hg] Sadiq Chato [facility] 06-22-2024 11:49-0400 Respiratory rate 16 /min Sadiq Chato [facility] 06-22-2024 11:49-0400 SaO2% (BldA) [Mass fraction] 98 % Sadiq Reis [facility] 06-22-2024 11:49-0400 Systolic blood pressure 123 mm[Hg] Sadiq Reis [facility] 06-22-2024 10:55-0400 Body temperature 97.88 [degF] Sadiq Reis [facility] 06-22-2024 10:55-0400 Diastolic blood pressure 92 mm[Hg] Sadiq Reis [facility] 06-22-2024 10:55-0400 Heart rate 86 /min Sadiq Reis [facility] 06-22-2024 10:55-0400 Respiratory rate 18 /min Sadiq Reis [facility] 06-22-2024 10:55-0400 SaO2% (BldA) [Mass fraction] 96 % Sadiq Reis [facility] 06-22-2024 10:55-0400 Systolic blood pressure 129 mm[Hg] Sadiq Reis [facility] 06-22-2023 11:35-0400 Body height 170.2 cm Cayetano Hirsch MD Work Phone: [facility] 06-22-2023 11:35-0400 Body mass index (BMI) [Ratio] 29.52 kg/m2 Cayetano Hirsch MD Work Phone: [facility] 06-22-2023 11:35-0400 Body temperature 98.01 [degF] Cayetano Hirsch MD Work Phone: [facility] 06-22-2023 11:35-0400 Body weight 85.5 kg Cayetano Hirsch MD Work Phone: [facility] 06-22-2023 11:35-0400 Diastolic blood pressure 84 mm[Hg] Cayetano Hirsch MD Work Phone: [facility] 06-22-2023 11:35-0400 Heart rate 73 /min Cayetano Hirsch MD Work Phone: [facility] 06-22-2023 11:35-0400 SaO2% (BldA) [Mass fraction] 97 % Cayetano Hirsch MD Work Phone: [facility] 06-22-2023 11:35-0400 Systolic blood pressure 130 mm[Hg] Cayetano Hirsch MD Work Phone: [facility] 04-27-2023 11:18-0400 Body height 171.5 cm Cayetano Hirsch MD Work Phone: [facility] 04-27-2023 11:18-0400 Body mass index (BMI) [Ratio] 28.55 kg/m2 Cayetano Hirsch MD Work Phone: [facility] 04-27-2023 11:18-0400 Body temperature 98.1 [degF] Cayetano Hirsch MD Work Phone: [facility] 04-27-2023 11:18-0400 Body weight 83.92 kg Cayetano Hirsch MD Work Phone: [facility] 12-02-2019 18:11-0500 Diastolic blood pressure 64 mm[Hg] Gabino Salazar MD Work Phone: [place] Work Phone: 12-02-2019 18:11-0500 Heart rate 70 /min Gabino Salazar MD Work Phone: [place] Work Phone: 12-02-2019 18:11-0500 Respiratory rate 13 /min Gabino Salazar MD Work Phone: [place] Work Phone: 12-02-2019 18:11-0500 SaO2% (BldA) [Mass fraction] 100 % Gabino Salazar MD Work Phone: [place] Work Phone: 12-02-2019 18:11-0500 Systolic blood pressure 99 mm[Hg] Gabino Salazar MD Work Phone: [place] Work Phone: 12-02-2019 16:18-0500 Body height 170.2 cm Gabino Salazar MD Work Phone: [place] Work Phone: 12-02-2019 16:18-0500 Body mass index (BMI) [Ratio] 28.19 kg/m2 Gabino Salazar MD Work Phone: [place] Work Phone: 12-02-2019 16:18-0500 Body temperature 98.71 [degF] Gabino Salazar MD Work Phone: [place] Work Phone: 12-02-2019 16:18-0500 Body weight 81.65 kg Gabino Salazar MD Work Phone: [place] Work Phone: Encounters Encounter Date Encounter Type Care Provider Facility Start: 07-10-2025 ambulatory Magdalene Ritter Facility:[facility] Start: 06-24-2025 End: 06-24-2025 ambulatory Adriennesa James -Laboratory Specimen Start: 06-24-2025 End: 06-24-[address] Tasha Miguel MD -Laboratory Specimen Work Phone: Start: 06-24-2025 End: 06-24-[address] Tasha Miguel MD -[facility] Work Phone: Start: 06-24-2025 End: 06-24-2025 ambulatory Tasha Miguel -[facility] Start: 06-24-2025 End: 06-24-2025 ambulatory Tasha Miguel Facility:[facility] Start: 06-16-2025 Non-patient / Non-visit Adrienne James -[facility] Work Phone: Start: 06-16-2025 End: 06-16-2025 ambulatory [facility] Start: 02-05-2025 End: 02-05-2025 ambulatory [facility] Start: 01-28-2025 ambulatory Adrienne James Facility:[facility] Start: 09-17-2024 End: 09-17-2024 ambulatory [facility] Start: 07-10-2024 End: 07-10-2024 Emergency department patient visit Margret Rodriguez MD Work Phone: [facility] ED Comment on above: Left arm cellulitis (Primary Dx) Start: 06-22-2024 End: 06-22-2024 Emergency department patient visit Sadiq Reis [facility] Start: 07-13-2023 End: 07-13-2023 ambulatory NEREYDA [facility] Start: 06-22-2023 End: 06-22-2023 ambulatory CAYETANO HIRSCH [facility] Start: 06-22-2023 End: 06-22-2023 Office outpatient visit 10 minutes Cayetano Hrisch MD Work Phone: [facility] Comment on above: Lipoma of neck (Prim fernanda Dx); Neck mass Start: 05-24-2023 End: 05-28-2023 ambulatory PROVIDER NOT IN SYSTEM [facility] Start: 04-27-2023 End: 05-01-2023 ambulatory RADHA BILLINGSLEY [facility] Start: 04-27-2023 End: 04-27-2023 ambulatory NEREYDA Nixon [facility] Ambulatory Start: 04-27-2023 End: 04-27-2023 Clinical Support Radha Porter Work Phone: [facility] Comment on above: Sensorineural hearin g loss, bilateral (Primary Dx) Start: 04-27-2023 End: 04-27-2023 Office outpatient new 30 minutes Cayetano Hirsch MD Work Phone: [facility] Comment on above: Sensorineural hearin g loss, bilateral (Primary Dx); Neck mass; Hypothyroidism, unspecified type Start: 07-13-2021 End: 07-15-2021 Subsequent hospital visit by physician [facility] Mammography Room [facility] Mammography Comment on above: Visit for screening mammogram Start: 05-14-2021 End: 05-14-2021 Subsequent hospital visit by physician Nereyda Palafox DO Work Phone: [facility] Laboratory Comment on above: Pelvic pain; Vaginal discharge; Screening for cervical cancer; Dysuria; Microscopic hematuria Start: 12-02-2019 End: 12-02-2019 Emergency department patient visit Gabino Salazar MD Work Phone: [facility] ED Comment on above: Chest pain, unspecif ied type (Primary Dx); Left shoulder pain, unspecified chronicity Start: 11-29-2019 End: 12-01-2019 Subsequent hospital visit by physician [facility] Mammography Comment on above: Visit for screening mammogram Procedures Date Procedure Procedure Detail Performing Clinician Start: 05-17-2023 Mammography Cayetano babcock MD Work Phone: Start: 07-13-2021 End: 07-13-2021 Screening mammography bi 2-view breast inc cad Nereyda Palafox DO Work Phone: Start: 05-14-2021 Iadna mat specie s direct probe tq Nereyda Palafox DO Work Phone: Start: 05-14-2021 Microscopic observat ion [Identifier] in Cervix by Cyto stain Cayetano Hirsch MD Work Phone: Start: 12-02-2019 Assay of troponin quantitative Gabino Salazar MD Work Phone: Start: 12-02-2019 BASIC METABOLIC PANE L W/ REFLEX TO MG FOR LOW K Gabino Salazar MD Work Phone: Start: 12-02-2019 Natriuretic peptide Chr ellie Salazar MD Work Phone: Start: 12-02-2019 Radiologic exam ches t single view Gabino Salazar MD Work Phone: Start: 12-02-2019 INITIATE OXYGEN THER APY PROTOCOL Gabino Salazar MD Work Phone: Start: 03-17-2015 Colonoscopy Margret Cardenas MD Work Phone: section Sadiq Reis Cholecystectomy Sadiq Reis Plan of Treatment Date Care Activity Detail Author Start: 07-13-2028 Lipid panel Lipids [employer] Start: 07-13-2026 Diabetes screen Diabetes screen [employer] Start: 05-14-2026 Screening for malign ant neoplasm of cervix [facility] Start: 05-17-2025 Screening for malign ant neoplasm of breast Breast cancer screen [employer] Start: 03-25-2025 Depression Screen Depression Screen [facility] Start: 03-17-2025 Colon cancer screen colonoscopy Colon cancer screen colonoscopy [place] Work Phone: Start: 03-17-2025 Screening for malign ant neoplasm of colon [employer] Start: 07-22-2024 End: 07-22-2024 Patient encounter procedure 07/22/2024 1:30 PM EDT Office Visit [facility] [id number] Abdullahi Rowell MD [address] [place] [address], [address] [place] [address] Kidney Stone F/U [facility] [employer] [facility] Comment on above: Kidney Stone F/U Start: 06-13-2024 Influenza vaccination Flu vaccine (# 1) [employer] Start: 05-17-2024 Screening for malign ant neoplasm of breast Mammogram [facility] Start: 05-14-2024 Screening for malign ant neoplasm of cervix Pap smear [employer] Start: 11-13-2023 Annual Wellness Visi t (Medicare Advantage) Annual Wellness Visit (Medicare Advantage) [employer] Start: 07-14-2023 COVID-19 Vaccine ( season) COVID-19 Vaccine ( season) [employer] Start: 07-14-2023 Influenza vaccination [facility] Start: 07-13-2023 Screening for malign ant neoplasm of breast Breast cancer screen [place] Work Phone: Start: 06-01-2023 End: 06-01-2023 Patient encounter procedure 06/01/2023 11:00 AM EDT Office Visit [facility] [address] [facility] [place] [address] Cayetano Hirsch MD [address] [place] [id number] [facility] Start: 04-27-2023 End: 04-27-2024 Ultrasonography of head and neck US Soft Tissue Neck Imaging Routine Neck mass Expected: 04/27/2023, Expires: 04/27/2024 [facility] Work Phone: Comment on above: Expected: 04/27/2023 , Expires: 04/27/2024 Start: 12-30-2022 Diabetes screen Diabetes screen [email or web address] Work Phone: Start: 11-09-2022 Lipid panel Lipid screen [employer] Work Phone: Start: 11-09-2022 Lipid screen Lipid screen [employer] Work Phone: Start: 10-12-2022 Screening for malign ant neoplasm of lung Lung Cancer Screening &/or Counseling [employer] Start: 08-16-2022 Pneumococcal 0-64 ye ars Vaccine (2 of 2 - PCV) Pneumococcal 0-64 years Vaccine (2 of 2 - PCV) [employer] Start: 08-16-2022 Pneumococcal Vaccine : Ped or At-Risk (2 - PCV) Pneumococcal Vaccine: Ped or At-Risk (2 - PCV) [facility] Start: 07-13-2022 Screening for malign ant neoplasm of breast Mammogram [facility] Start: 05-14-2022 History and physical examination, annual for health maintenance Wellness Visit [facility] Start: 04-30-2022 Annual Wellness Visi t (AWV) Annual Wellness Visit (AWV) [employer] Phone: Start: 11-29-2021 Screening for malign ant neoplasm of breast Breast cancer screen [employer] Phone: Start: 2021 Respiratory Syncytia l Virus (RSV) or age 60 yrs+ (1 - 1-dose 60+ series) Respiratory Syncytial Virus (RSV) or age 60 yrs+ (1 - 1-dose 60+ series) [facility] [employer] Start: 07-14-2021 Influenza vaccination Flu vaccine (# 1) [employer] Phone: Start: 03-23-2021 Cervical cancer screen Cervical canc er screen [employer] Phone: Start: 12-30-2019 End: 12-30-2019 Patient encounter procedure 12/30/2019 Office Visit Family Medicine Nereyda Palafox, DO [address] [place] [address] [facility] Start: 07-14-2019 Influenza vaccination Flu vaccine (# 1) [employer] Phone: Start: 04-10-2019 Annual Wellness Visi t (AWV) Annual Wellness Visit (AWV) [employer] Phone: Start: 04-03-2019 Breast cancer screen Breast cancer s creen [employer] Phone: Start: 03-23-2019 Screening for malign ant neoplasm of cervix Cervical cancer screen [employer] Phone: Start: 2011 Administration of he rpes zoster vaccine Zoster Vaccines (1 of 2) [facility] Start: 2011 Screening for malign ant neoplasm of colon Flexible sigmoidoscopy [facility] Start: 2011 Screening for malign ant neoplasm of lung Low dose CT lung screening [employer] Phone: Start: 2011 Shingles Vaccine (1 of 2) Flores gles Vaccine (1 of 2) [facility] Start: 2006 Screening for malign ant neoplasm of colon [facility] Start: 1980 DTaP/Tdap/Td vaccine (1 - Tdap) DTaP/Tdap/Td vaccine (1 - Tdap) [facility] Start: 1979 Hepatitis C screening Hepatitis C Sc reening [facility] Start: 1976 HIV screening HIV Screening [facility] Start: 1973 COVID-19 Vaccine (1) COVID-19 Vaccin e (1) [employer] Phone: Start: 1973 Depression screening using PHQ-9 (Patient Health Questionnaire 9) score Depression Screening (PHQ-2/9) [facility] Start: 1972 DTaP/Tdap/Td vaccine (1 - Tdap) DTaP/Tdap/Td vaccine (1 - Tdap) [employer] Phone: Start: 1967 Pneumococcal 0-64 ye ars Vaccine (1 of 2 - PPSV23) Pneumococcal 0-64 years Vaccine (1 of 2 - PPSV23) [employer] Phone: Start: 03-10-1962 COVID-19 Vaccine (#1) COVID-19 Vacci ne (#1) [facility] Start: 1961 Screening for malign ant neoplasm of colon [facility] Start: 1961 Tetanus vaccination Tetanus: Every 1 0yrs [facility] End: 05-14-2021 Culture, Urine Culture, Urine Microbiology Routine Dysuria Pelvic pain Microscopic hematuria 1 Occurrences starting 05/14/2021 until 05/14/2021 [employer] Phone: Comment on above: 1 Occurrences starti ng 05/14/2021 until 05/14/2021 Culture, Urine Culture, Urine Microbiology Routine Dysuria Pelvic pain Microscopic hematuria 05/14/2021 2:00 PM EDT [employer] Phone: End: 05-14-2021 Cytopathology procedure, preparation of smear, genital source PAP Smear Lab Routine Screening for cervical cancer 1 Occurrences starting 05/14/2021 until 05/14/2021 [employer] Phone: Comment on above: 1 Occurrences starti ng 05/14/2021 until 05/14/2021 EKG 12 Lead EKG 12 Lead ECG STAT 12/02/2019 4:17 PM [employer] Phone: Initiate Oxygen Ther apy Protocol Initiate Oxygen Therapy Protocol Respiratory Care Routine Daily until discontinued starting 12/02/2019, 2 completed [employer] Phone: Comment on above: Daily until disconti nued starting 12/02/2019, 2 completed End: 11-29-2019 NICK DIGITAL SCREEN W CAD BILATERAL NICK DIGITAL SCREEN W CAD BILATERAL Imaging Routine Visit for screening mammogram 1 Occurrences starting 11/29/2019 until 11/29/2019 [employer] Phone: Comment on above: 1 Occurrences starti ng 11/29/2019 until 11/29/2019 NICK DIGITAL SCREEN W CAD BILATERAL NICK DIGITAL SCREEN W CAD BILATERAL Imaging Routine Visit for screening mammogram 11/29/2019 11:33 AM [employer] Phone: [facility] Immunizations Immunization Date Immunization Notes Care Provider Cory romero 08-16-2021 Influenza, injectabl e, Madin [place] Canine Kidney, preservative free, quadrivalent Margret Rodriguez MD Work Phone: [employer] 08-16-2021 pneumococcal polysaccharide vaccine, 23 valent Margret Rodriguez MD Work Phone: [employer] 09-20-2017 influenza, injectabl e, quadrivalent, preservative free [facility] [place] Work Phone: Payers Date Payer Category Payer Private Health Insurance [id number] 2025 Self-pay 2024 Medicare [id number] 2024 Medicare [id number] 2019 Medicare HUMANA MANAGED MEDICARE HUMANA [facility] ADVANTAGE CHOICE PPO [id number] 2019-Present [phone] [address] [address] [place] [address] [id number] 2016 Medicare HUMANA MEDICARE HUMANA CHOICE-PPO MEDICARE xxxxxxxxx 2016-Present [address] [address] [place] [address] xxxxxxxxx [id number] 2016 Medicare [id number] 1961 Unknown [id number] [id number] 1961 Unknown [id number] [id number] 1961 Unknown [id number] [id number]3 1961 Unknown [id number] 2.16.840.1.773994.3.579.2.903 1961 Unknown [id number] 2.16.840.1.215859.3.579.2.727 1961 Unknown [id number] 2.16.840.1.825607.3.579.2.727 1961 Unknown [id number] 2.16.840.1.875629.3.579.2.174 1961 Unknown [id number] 2.16.840.1.380875.3.579.2.174 1961 Unknown [id number] 2.16.840.1.814546.3.579.2.903 1961 Unknown [id number] 2.16.840.1.947534.3.579.2.900 1961 Unknown [id number] 2.16.840.1.737090.3.579.2.900 1961 Unknown [id number] [id number] Unknown [id number] 2.16.840.1.918059.3.579.2.462 Unknown [id number] 2.16.840.1.979690.3.579.2.462 Unknown [id number] [id number] Unknown [id number] [id number] Unknown [id number] Social History Date Type Detail Facility Start: 05-14-2021 End: 06-24-2025 Tobacco smoking status [facility] Former smoker [facility] Start: 11-13-1981 End: 11-13-2011 History of tobacco use Current smoker [place] Start: 11-13-1981 End: 11-13-2011 History of tobacco use Cigarette Smoker [place] Start: 05-14-2021 End: 07-10-2024 Cigarettes smoked current (pack per day) - Reported ELISE AUGUSTINE [facility] Start: 05-14-2021 End: 03-25-2024 Tobacco use and exposure Never used [place] Start: 05-14-2021 End: 03-25-2024 Alcohol intake Current non-drinker of alcohol (finding) [employer] Phone: Start: 04-29-2021 History SDOH Financial 5 [employer] Phone: Start: 04-29-2021 History SDOH Food Worry 1 [employer] Phone: Start: 1960 Sex Assigned At Not on file [facility] Phone: Start: 04-27-2023 Tobacco smoking status ALIS Never smoked tobacco [facility] Start: 04-27-2023 End: 06-22-2023 Alcohol intake Lifetime non-drinker (finding) [facility] Start: 04-27-2023 End: 07-10-2024 Gender identity Not on file Moise Guillermo [facility] Start: 06-22-2023 Gender identity Identifies as female gender (finding) [facility] Start: 06-22-2023 Sexual orientation Heterosexual (finding) [facility] How often to you hav e a drink containing alcohol? Never [employer] How many standard drinks containing alcohol do you have on a typical day? Patient does not drink [employer] (I/We) worried wheth er (my/our) food would run out before (I/we) got money to buy more. Never true [employer] Start: 1960 Sex Assigned At Female [facility] Functional Status Date Assessment Result Facility 06-22-2024 Functional Status N/A [facility] Clinical Notes 12-02-2019 to 06-24-2025 Note Date & Type Note Facility 06-24-2025 Evaluation note Diagnosis Onset Date Resolution Endometrial polyp acute June 24, 2025 1:21pm Thickened endometrium acute Jun ust 2024 1:21pm [facility] Work Phone: 1(251) 305-647708-04-2025 NoteOutside Reference US ProcedureAugust 2024 2:52pmAugust 2024 8:13[facility] 06-16-2025 NoteOutside Reference US ProcedureAugust 2024 2:52pmAugust 2024 8:13[facility]08-10-2024 Hospital Discharge instructions Patient Education 06/22/2024 12:43:38 Kidney Stones Kidney Stones Kidney stones are solid, rock-like deposits that form inside of the kidneys. The kidneys are a pairof organs that make urine. A kidney stone may form in a kidney and move into other parts of the urinary tract, including the tubes that connect the kidneys to the bladder (ureters), the bladder, and the tube that carries urine out of the body (urethra). As the stone moves through these areas, it can cause intense pain and block the flow of urine. Kidney stones are created when high levels of certain minerals are found in the urine. The stones are usually passed out of the body through urination, but in some cases, medical treatment may be needed to remove them. What are the causes? Kidney stones may be caused by: A condition in which certain glands produce too much parathyroid hormone (primary hyperparathyroidism), which causes too much calcium buildup in the blood. A buildup of uric acid crystals in the bladder (hyperuricosuria). Uric acid is a chemical that the body produces when you eat certain foods. It usually leaves the body in the urine. Narrowing (stricture) of one or both of the ureters. A kidney blockage that is present at (congenital obstruction). Past surgery on the kidney or the ureters. What increases the risk? The following factors may make you more likely to develop this condition: Having had a kidney stone in the past. Having a family history of kidney stones. Not drinking enough water. Eating a diet that is high in protein, salt (sodium), or sugar. Being overweight or obese. What are the signs or symptoms? Symptoms of a kidney stone may include: Pain in the side of the abdomen, right below the ribs (flank pain). Pain usually spreads (radiates)to the groin. Needing to urinate often or urgently. Painful urination. Blood in the urine (hematuria). Nausea. Vomiting. Fever and chills. How is this diagnosed? This condition may be diagnosed based on: Your symptoms and medical history. A physical exam. Blood tests. Urine tests. These may be done before and after the stone passes out of your body through urination. Imaging tests, such as a CT scan, abdominal X-ray, or ultrasound. A procedure to examine the inside of the bladder (cystoscopy). How is this treated? Treatment for kidney stones depends on the size, location, and makeup of the stones. Kidney stones will often pass out of the body through urination. You may need to: Increase your fluid intake to help pass the stone. In some cases, you may be given fluids through an IV and may need to be monitored in the hospital. Take medicine for pain. Make changes in your diet to help prevent kidney stones from coming back. Sometimes, procedures are needed to remove a kidney stone. This may involve: A procedure to break up kidney stones using: ?A focused beam of light (laser therapy). ?Shock waves (extracorporeal shock wave lithotripsy). Surgery to remove kidney stones. This may be needed if you have severe pain or have stones that block your urinary tract. Follow these instructions at home: Medicines Take fxtm-zdx-qrxutrv and prescription medicines only as told by your health care provider. Ask your health care provider if the medicine prescribed to you requires you to avoid driving or using heavy machinery. Eating and drinking Drink enough fluid to keep your urine pale yellow. You may be instructed to drink at least 8 10 glasses of water each day. This will help you pass the kidney stone. If directed, change your diet. This may include: ?Limiting how much sodium you eat. ?Eating more fruits and vegetables. ?Limiting how much animal protein you eat. Animal proteins include red meat, poultry, fish, and eggs. ?Eating a normal amount of calcium (1,000 1,300 mg per day). Follow instructions from your health care provider about eating or drinking restrictions. General instructions Collect urine samples as told by your health care provider. You may need to collect a urine sample: ?24 hours after you pass the stone. ?8 12 weeks after you pass the kidney stone, and every 6 12 months after that. Strain your urine every time you urinate, for as long as directed. Use the strainer that your health care provider recommends. Do not throw out the kidney stone after passing it. Keep the stone so it can be tested by your health care provider. Testing the makeup of your kidney stone may help prevent you from getting kidney stones in the future. Keep all follow-up visits. You may need follow-up X-rays or ultrasounds to make sure that your stone has passed. How is this prevented? To prevent another kidney stone: Drink enough fluid to keep your urine pale yellow. This is the best way to prevent kidney stones. Eat a healthy diet. Follow recommendations from your health care provider about foods to avoid. Recommendations vary depending on the type of kidney stone that you have. You may be instructed to eat a low-protein diet. Maintain a healthy weight. Where to find more information National Kidney Foundation (NKF): www.kidney.org Urology Care Foundation (UCF): www.urologyhealth.org Contact a health care provider if: You have pain that gets worse or does not get better with medicine. Get help right away if: You have a fever or chills. You develop severe pain. You develop new abdominal pain. You faint. You are unable to urinate. Summary Kidney stones are solid, rock-like deposits that form inside of the kidneys. Kidney stones can cause nausea, vomiting, blood in the urine, abdominal pain, and the urge to urinate often. Treatment for kidney stones depends on the size, location, and makeup of the stones. Kidney stones will often pass out of the body through urination. Kidney stones can be prevented by drinking enough fluids, eating a healthy diet, and maintaining a healthy weight. This information is not intended to replace advice given to you by your health care provider. Make sure you discuss any questions you have with your health care provider. Document Revised: 02/08/2023 Document Reviewed: 02/08/2023 [employer] Patient Education 2022 [employer]. 06/22/2024 12:43:38 Dietary Guidelines to Help Prevent Kidney Stones Dietary Guidelines to Help Prevent Kidney Stones Kidney stones are deposits of minerals and salts that form inside your kidneys. Your risk of developing kidney stones may be greater depending on your diet, your lifestyle, the medicines you take, and whether you have certain medical conditions. Most people can lower their risks of developing kidney stones by following these dietary guidelines. Your dietitian may give you more specific instructions depending on your overall health and the type of kidney stones you tend to develop. What are tips for following this plan? Reading food labels Choose foods with no salt added or low-salt labels. Limit your salt (sodium) intake to less than 1,500 mg a day. Choose foods with calcium for each meal and snack. Try to eat about 300 mg of calcium at each meal.Foods that contain 200 500 mg of calcium a serving include: ?8 oz (237 mL) of milk, rzywuuw-doyftiofwnzj-qiatz milk, and calcium- fortifiedfruit juice. Calcium-fortified means that calcium has been added to these drinks. ?8 oz (237 mL) of kefir, yogurt, and soy yogurt. ?4 oz (114 g) of tofu. ?1 oz (28 g) of cheese. ?1 cup (150 g) of dried figs. ?1 cup (91 g) of cooked broccoli. ?One 3 oz (85 g) can of sardines or mackerel. Most people need 1,000 1,500 mg of calcium a day. Talk to your dietitian about how much calcium is recommended for you. Shopping Buy plenty of fresh fruits and vegetables. Most people do not need to avoid fruits and vegetables, even if these foods contain nutrients that may contribute to kidney stones. When shopping for convenience foods, choose: ?Whole pieces of fruit. ?Pre-made salads with dressing on the side. ?Low-fat fruit and yogurt smoothies. Avoid buying frozen meals or prepared deli foods. These can be high in sodium. Look for foods with live cultures, such as yogurt and kefir. Choose high-fiber grains, such as whole-wheat breads, oat bran, and wheat cereals. Cooking Do not add salt to food when cooking. Place a salt shaker on the table and allow each person to addtheir own salt to taste. Use vegetable protein, such as beans, textured vegetable protein (TVP), or tofu, instead of meat inpasta, casseroles, and soups. Meal planning Eat less salt, if told by your dietitian. To do this: ?Avoid eating processed or pre-made food. ?Avoid eating fast food. Eat less animal protein, including cheese, meat, poultry, or fish, if told by your dietitian. To dothis: ?Limit the number of times you have meat, poultry, fish, or cheese each week. Eat a diet free of meat at least 2 days a week. ?Eat only one serving each day of meat, poultry, fish, or seafood. ?When you prepare animal proteins, cut pieces into small portion sizes. For most meat and fish, oneserving is about the size of the palm of your hand. Eat at least five servings of fresh fruits and vegetables each day. To do this: ?Keep fruits and vegetables on hand for snacks. ?Eat one piece of fruit or a handful of berries with breakfast. ?Have a salad and fruit at lunch. ?Have two kinds of vegetables at dinner. You may be told to limit foods that are high in a substance called oxalate. These include: ?Spinach (cooked), rhubarb, beets, sweet potatoes, and Jamaican chard. ?Peanuts. ?Potato chips, marshallese fries, and baked potatoes with skin on. ?Nuts and nut products. ?Chocolate. If you regularly take a diuretic medicine, make sure to eat at least 1 or 2 servings of fruits or vegetables that are high in potassium each day. These include: ?Avocado. ?Banana. ?Kinney, prune, carrot, or tomato juice. ?Baked potato. ?Cabbage. ?Beans and split peas. Lifestyle Drink enough fluid to keep your urine pale yellow. This is the most important thing you can do. Spread your fluid intake throughout the day. If you drink alcohol: ?Limit how much you have to: ?0 1 drink a day for women who are not . ?0 2 drinks a day for men. ?Know how much alcohol is in your drink. In the [place] one drink equals one 12 oz bottle of beer (355 mL), one 5 oz glass of wine (148 mL), or one 1 oz glass of hard liquor (44 mL). Lose weight if told by your health care provider. Work with your dietitian to find an eating plan and weight loss strategies that work best for you. General information Talk to your health care provider and dietitian about taking daily supplements. Depending on your health and the cause of your kidney stones, you may be told: ?Do not take high-dose supplements of vitamin C (1,000 mg a day or more). ?To take a calcium supplement. ?To take a daily probiotic supplement. ?To take other supplements such as magnesium, fish oil, or vitamin B6. Take kbcp-qbq-kwhffde and prescription medicines only as told by your health care provider. These include supplements. What foods should I limit? Limit your intake of the following foods, or eat them as told by your dietitian. Vegetables Spinach. Rhubarb. Beets. Canned vegetables. Pickles. Olives. Baked potatoes with skin. Grains Wheat bran. Baked goods. Salted crackers. Cereals high in sugar. Meats and other proteins Nuts. Nut butters. Large portions of meat, poultry, or fish. Salted, precooked, or cured meats, such as sausages, meat loaves, and hot dogs. Dairy Cheeses. Beverages Regular soft drinks. Regular vegetable juice. Seasonings and condiments Seasoning blends with salt. Salad dressings. Soy sauce. Ketchup. Barbecue sauce. Other foods Canned soups. Canned pasta sauce. Casseroles. Pizza. Lasagna. Frozen meals. Potato chips. Slovenian fries. The items listed above may not be a complete list of foods and beverages you should limit. Contact a dietitian for more information. What foods should I avoid? Talk to your dietitian about specific foods you should avoid based on the type of kidney stones youhave and your overall health. Fruits Grapefruit. The item listed above may not be a complete list of foods and beverages you should avoid. Contact adietitian for more information. Summary Kidney stones are deposits of minerals and salts that form inside your kidneys. You can lower your risk of kidney stones by making changes to your diet. The most important thing you can do is drink enough fluid. Drink enough fluid to keep your urine pale yellow. Talk to your dietitian about how much calcium you should have each day, and eat less salt and animal protein as told by your dietitian. This information is not intended to replace advice given to you by your health care provider. Make sure you discuss any questions you have with your health care provider. Document Revised: 02/09/2023 Document Reviewed: 02/09/2023 [employer] Patient Education 2022 [employer]. Follow Up Care 06/22/2024 10:54:36 With:Sahra Ocampo Address:Unknown When:06/25/2024 12:42:02 Comments:Call Dr for diagnosis based follow up With:NEREYDA PALAFOX Address: [address] [place] [address]- [facility] (1) When:06/25/2024 12:41:39 Comments:Call the office of your primary care doctor to arrange for follow-up within the above-stated timeframe. Follow-up with your primary care doctor about this ED visit. You should review your labs, imaging, and diagnoses from this ED visit with your primary care physician. There are occasionally non-emergent findings that require additional follow-up after your ED visit. If you were prescribed medications you should discuss possible side-effects and drug interactions with your pharmacist. Call 911 or go to the nearest Emergency Department if you develop any new or worsening symptoms.Seek immediate medical attention if you develop:worsening abdominal pain, new or worsening nausea, new or worsening vomiting, new or worsening diarrhea, chest pain, shortness of breath, pain with urination, problems urinating, fever, chills, weakness, or any new or worsening symptoms.Follow-up on incidentally visualized renal cyst. Recommend a repeat ultrasound when you are feeling improved for better character ization. [facility] 08-10-2024 Evaluation + Plan noteExtracted from: Title:ED Note Author:Sadiq Reis DO Date: Kidney stone (N20.0: Calculu s of kidney) Ordered: oxycodone, 5 mg = 1 cap(s), Oral, q6hr, PRN Pain 8-10, # 12 cap(s), Refills(s) 0, Pharmacy: [id number], 170, cm, 06/22/24 11:00:00 EDT, Height/Length Dosing, 87.6, kg, 06/22/24 11:00:00 EDT, Weight Dosing Orders: ketorolac, 30 mg = 1 mL, Injection, IV Push, Once, Stop date 06/22/24 11:04:00 EDT, STAT, Start date 06/22/24 11:04:00 EDT, 06/22/24 11:04:00 EDT morphine, 4 mg = 1 mL, Injection, IV Push, Once, Stop date 06/22/24 11:04:00 EDT, STAT, Start date 06/22/24 11:04:00 EDT, 06/22/24 11:04:00 EDT naproxen, 500 mg = 1 tab(s), Oral, BID, PRN for pain, # 20 tab(s), Refills(s) 0, Pharmacy: [id number], 170, cm, 06/22/24 11:00:00 EDT, Height/Length Dosing, 87.6, kg, 06/22/24 11:00:00 EDT, Weight Dosing ondansetron, 4 mg = 1 tab(s), Oral, q8hr, PRN Nausea/Vomiting, # 16 tab(s), Refills(s) 0, Pharmacy: [id number], 170, cm, 06/22/24 11:00:00 EDT, Height/Length Dosing, 87.6, kg, 06/22/24 11:00:00 EDT, Weight Dosing ondansetron, 4 mg = 2 mL, Injection, IV Push, Once, Stop date 06/22/24 11:04:00 EDT, STAT, Start date 06/22/24 11:04:00 EDT, 06/22/24 11:04:00 EDT Sodium Chloride 0.9% intravenous solution, 1,000 mL, IV, Stop date 06/22/24 11:04:00 EDT, Start date 06/22/24 11:04:00 EDT tamsulosin, 0.4 mg = 1 cap(s), Oral, Daily, X 7 day(s), # 7 cap(s), Refills(s) 0, Pharmacy: [id number], 170, cm, 06/22/24 11:00:00 EDT, Height/Length Dosing, 87.6, kg, 06/22/24 11:00:00 EDT, Weight Dosing Basic Metabolic Panel CBC w/ Auto Diff CT Abdomen/Pelvis w/o Contrast ED Cardiac Monitoring eGFR Extra Blue Tube Extra SST Tube Saline Lock Insert UA with Cult Rflx [facility] 08-10-2024 NoteED Patient Education Note Nephrology Dietary Guidelines to Help Prevent Kidney Stones Kidney stones are deposits of minerals and salts that form inside your kidneys. Your risk of developing kidney stones may be greater depending on your diet, your lifestyle, the medicines you take, and whether you have certain medical conditions. Most people can lower their risks of developing kidney stones by following these dietary guidelines. Your dietitian may give you more specific instructions depending on your overall health and the type of kidney stones you tend to develop. What are tips for following this plan? Reading food labels ? Choose foods with no salt added or low-salt labels. Limit your salt (sodium) intake to less than 1,500 mg a day. ? Choose foods with calcium for each meal and snack. Try to eat about 300 mg of calcium at each meal. Foods that contain 200?500 mg of calcium a serving include: ? 8 oz (237 mL) of milk, fluepte-prswuqyehtbp-lwlhe milk, and calcium- fortifiedfruit juice. Calcium-fortified means that calcium has been added to these drinks. ? 8 oz (237 mL) of kefir, yogurt, and soy yogurt. ? 4 oz (114 g) of tofu. ? 1 oz (28 g) of cheese. ? 1 cup (150 g) of dried figs. ? 1 cup (91 g) of cooked broccoli. ? One 3 oz (85 g) can of sardines or mackerel. Most people need 1,000?1,500 mg of calcium a day. Talk to your dietitian about how much calcium is recommended for you. Shopping ? Buy plenty of fresh fruits and vegetables. Most people do not need to avoid fruits and vegetables, even if these foods contain nutrients that may contribute to kidney stones. ? When shopping for convenience foods, choose: ? Whole pieces of fruit. ? Pre-made salads with dressing on the side. ? Low-fat fruit and yogurt smoothies. ? Avoid buying frozen meals or prepared deli foods. These can be high in sodium. ? Look for foods with live cultures, such as yogurt and kefir. ? Choose high-fiber grains, such as whole-wheat breads, oat bran, and wheat cereals. Cooking ? Do not add salt to food when cooking. Place a salt shaker on the table and allow each person to add their own salt to taste. ? Use vegetable protein, such as beans, textured vegetable protein (TVP), or tofu, instead of meat in pasta, casseroles, and soups. Meal planning ? Eat less salt, if told by your dietitian. To do this: ? Avoid eating processed or pre-made food. ? Avoid eating fast food. ? Eat less animal protein, including cheese, meat, poultry, or fish, if told by your dietitian. To do this: ? Limit the number of times you have meat, poultry, fish, or cheese each week. Eat a diet free of meat at least 2 days a week. ? Eat only one serving each day of meat, poultry, fish, or seafood. ? When you prepare animal proteins, cut pieces into small portion sizes. For most meat and fish, one serving is about the size of the palm of your hand. ? Eat at least five servings of fresh fruits and vegetables each day. To do this: ? Keep fruits and vegetables on hand for snacks. ? Eat one piece of fruit or a handful of berries with breakfast. ? Have a salad and fruit at lunch. ? Have two kinds of vegetables at dinner. ? You may be told to limit foods that are high in a substance called oxalate. These include: ? Spinach (cooked), rhubarb, beets, sweet potatoes, and Jamaican chard. ? Peanuts. ? Potato chips, marshallese fries, and baked potatoes with skin on. ? Nuts and nut products. ? Chocolate. ? If you regularly take a diuretic medicine, make sure to eat at least 1 or 2 servings of fruits orvegetables that are high in potassium each day. These include: ? Avocado. ? Banana. ? Kinney, prune, carrot, or tomato juice. ? Baked potato. ? Cabbage. ? Beans and split peas. Lifestyle ? Drink enough fluid to keep your urine pale yellow. This is the most important thing you can do. Spread your fluid intake throughout the day. ? If you drink alcohol: ? Limit how much you have to: ? 0?1 drink a day for women who are not . ? 0?2 drinks a day for men. ? Know how much alcohol is in your drink. In the [place] one drink equals one 12 oz bottle of beer (355 mL), one 5 oz glass of wine (148 mL), or one 1? oz glass of hard liquor (44 mL). ? Lose weight if told by your health care provider. Work with your dietitian to find an eating planand weight loss strategies that work best for you. General information ? Talk to your health care provider and dietitian about taking daily supplements. Depending on yourhealth and the cause of your kidney stones, you may be told: ? Do not take high-dose supplements of vitamin C (1,000 mg a day or more). ? To take a calcium supplement. ? To take a daily probiotic supplement. ? To take other supplements such as magnesium, fish oil, or vitamin B6. ? Take rxqo-eim-pfmaxdl and prescription medicines only as told by your health care provider. Theseinclude (more content not included)...[facility]08-10-2023 History of Present illness Narrative* Cayetano Hirsch MD - 06/22/2023 11:57 AM EDT [facility] [address] ([address]) [facility] [address] [facility] [address] Dept: [phone] Loc: [phone] MD Michelle Meekmarlon HuSunita 62 y.o. female Patient presents with a chief complaint of Thyroid US Review (1 month/Done at [facility]) BP 130/84 (BP Location: Left arm, Patient Position: Sitting, BP Cuff Size: X- large Adult) Pulse 73 Temp 98 F (36.7 C) (Oral) Ht 5' 7 Wt 85.5 kg (188 lb 8 oz) SpO2 97% BMI 29.52 kg/m History of Presenting Illness: The patient/caregiver reports a history of complaint with the following features: Onset: started many years ago Timing: no change since last visit Duration: many years Quality: reduced hearing, ringing in both ears Location: both ears Severity: pain none, difficulty understanding speech, distorted, often reads lips Risk factors: family history of hearing loss Alleviating factors: nothing makes it better Aggravating factors: nothing makes it worse Associated factors: hypothyroidism, corrected with medication Review of systems covering 10 systems is reviewed and pertinent positives and negatives are noted as above. Past Medical History: Diagnosis Date Anxiety Back injury Back pain CAD (coronary artery disease) COPD (chronic obstructive pulmonary disease) (HCC) DDD (degenerative disc disease), lumbar Diverticulitis Hypertension Hypothyroidism Traumatic pneumohemothorax Current Outpatient Medications: levothyroxine (SYNTHROID, LEVOTHROID) 25 MCG tablet, Take 1 (one) tablet (25 mcg total) by mouth daily ., Disp: , Rfl: Allergies Allergen Reactions Ciprofloxacin Other (See Comments) anaphylaxis Gabapentin Swelling Past Surgical History: Procedure Laterality Date SECTION CHOLECYSTECTOMY LUNG SURGERY Social History Socioeconomic History Marital status: Tobacco Use Smoking status: Never Smokeless tobacco: Never Substance and Sexual Activity Alcohol use: Never Drug use: Never Family History Problem Relation Age of Onset Cancer Mother Liver cancer Mother Cancer Father Lung cancer Father Cancer Sister Cancer Brother PHYSICAL EXAM: The patient was examined today 06/22/2023 with findings as follows: CONSTITUTIONAL: General Appearance: well-appearing, nontoxic, alert, no acute distress Communication: understanding at normal conversational tones, normal voicing, speech intelligible HEAD/FACE: Head: atraumatic, normocephalic, no lesions Facial Inspection: no lesions, healthy skin Facial Strength: motor strength normal, symmetric strength, symmetric movement Sinuses: no sinus tenderness Salivary Glands: no enlargements of parotid glands, no tenderness of parotid glands, no masses of parotid glands, clear salivary flow on palpation from Stensen's ducts, no duct stones of Stensen's duct, no enlargement of submandibular glands, no tenderness of submandibular glands, no masses of subma ndibular glands, clear salivary flow from Stockett's ducts, no stones of Alek's ducts Temporomandibular Joint: no crepitus with motion, no tenderness on palpation, no trismus, motion symmetric EYES: Pupils: PERRLA, extra-ocular movements intact, no nystagmus, sclera white, no redness of eyes, no watering of eyes EARS: Bilateral External Ears: no pits, no tags Right External Ear: normally formed, no lesions, no mastoid tenderness Left External Ear: normally formed, no lesions, no mastoid tenderness Right External Auditory Canal: normal, healthy skin, no obstructing cerumen, no discharge Left External Auditory Canal: normal, healthy skin, no obstructing cerumen, no discharge Right Tympanic Membrane: normal landmarks, translucent, mobile to pneumatic otoscopy, no perforation Left Tympanic Membrane: normal landmarks, translucent, mobile to pneumatic otoscopy, no perforation Hearing: reduced to spoken voice NOSE: Nasal Skin: no lesions, no lacerations, no scars Nasal Dorsum: symmetric with no visible or palpable deformities Nasal Tip: normal symmetric nasal tip, normal nasal valves Nasal Mucosa: normal, pink and moist Septum: not markedly deformed, midline, no exposed vessels, no bleeding, no septal granuloma Turbinates: normal size and conformation Nasopharynx: normal ORAL CAVITY/MOUTH: Lips, teeth, gums: normal lips, normal gums, dentition intact, no dental pain on palpation Oral Mucosa: normal, moist, no lesions Palate: normal hard palate, normal soft palate, symmetric palatal elevation Floor of Mouth: normal floor of mouth Tongue: normal tongue, no lesions, no edema, no masses, normal mucosa, mobile Tonsils: normal tonsils, symmetric, no lesions Posterior pharynx: normal NECK: Neck: soft 2 cm mass posterior left neck, trachea midline, normal range of motion, no cysts or pits, no tenderness to palpation Thyroid: normal thyroid, no enlargement, no tenderness, no nodules LYMPH NODES: Cervical: no palpable lymph node enlargement SKIN: General Appearance: no lesions, warm and dry, normal turgor, no bruising NEUROLOGICAL SYSTEM: Orientation: oriented to time, oriented to place, oriented to person Cranial Nerves: Cranial Nerves II-XII intact, normal facial movement PSYCHIATRIC: Mood and affect: normal mood, normal affect Assessment and Plan: She has a soft mass of the left neck following injury. Ultrasound is consistent with lipoma an the benign nature of these masses is discussed with reassurance offered. She elects to not have this removed at this time. 1. Lipoma of neck 2. Neck mass Return if symptoms worsen or fail to improve. The patient and/or caregiver is to notify the office if no improvement or worsening of symptoms is noted prior to the scheduled follow-up for sooner evaluation. The patient and/or caregiver is able to state an understanding of these recommendations and is agreeable to the treatment plan. --Cayetano Hirsch MD on 06/22/2023 at 11:59 AM An electronic signature was used to authenticate this note. * Nika Bryant LPN - 06/22/2023 11:32 AM EDT Review of Systems Constitutional: Negative. HENT: Negative. Eyes: Negative. Respiratory: Negative. Cardiovascular: Positive for leg swelling. Negative for chest pain and palpitations. Gastrointestinal: Negative. Endocrine: Negative. Genitourinary: Negative. Musculoskeletal: Positive for joint swelling. Negative for arthralgias, back pain, gait problem, myalgias, neck pain and neck stiffness. Skin: Negative. Allergic/Immunologic: Negative. Neurological: Negative. Hematological: Negative. Psychiatric/Behavioral: Negative. documented in this [id number] History of Present illness Narrative* Radha Billingsley AuD - 04/27/2023 11:49 AM EDT Images from the original note were not included. [facility] [address] [facility] [address] Name: Shona Manzo : 1960 Date: 04/27/23 History & Purpose of Evaluation: Shona Manzo was seen today for audiologic evaluation at the request of Cayetano Hirsch MD. Ms. Manzo reported difficulty hearing hearing in both ears since childhood, with the left ear being worse than the right. She denied any recent sudden or rapid change in hearing. Please see below for other pertinent case history information as reported by Ms. Manzo. Otologic Symptoms R L Noise Exposure Y N Medical Y N Hearing Loss [x] [x] Occupational [] [x] Hypertension [] [x] Tinnitus [x] [x] Recreational [] [x] Diabetes [] [x] Otalgia [] [] [] [x] Hypercholesterolemia [] [x] Otorrhea [] [] Heart Disease [] [x] Aural Fullness [] [] Family History:parents, grandparents, aunts [x] [] Stroke [] [x] Meniere s Disease [] [] Cancer [] [x] Y N Sp./Lang. Skills Ear Surgery R L Vertigo [] [x] Appropriate [x] [] PE Tubes [] [] Dizziness [] [x] In Therapy [] [x] Mastoidectomy [] [] Imbalance [] [x] Social Acoustic Neuroma [] [] Vestibular Rehab [] [x] Depression [] [x] Tympanoplasty [] [] Other: Results: Otoscopy: Performed by Dr. Hirsch prior to testing. Puretone Air & Bone Conduction Audiometry: Puretone audiometry revealed a moderate-severe sensorineural hearing loss bilaterally. Speech Audiometry: Speech recognition thresholds were in good agreement with puretone averages. Word recognition was excellent (100% in the right ear and 92% in the left ear) when assessed at an above-normal conversational loudness level using recorded male voice. Immittance Audiometry: Tympanometry revealed normal ear canal volume, normal static compliance, and normal middle ear resting pressure (Jerger type A). Distortion Product Otoacoustic Emissions (DPOAE; 1500-6k Hz): Did not assess. Impression: Test results revealed a moderate-severe sensorineural hearing loss, bilaterally. This hearing loss is expected to interfere with communication, especially in difficult listening situations. Binaural hearing aids are recommended, and Ms Manzo expressed interest in pursuing that option. She is under the impression she has benefits for hearing aids through her insurance carrier, but that [facility] is not a participating provider for that benefit. I invited her to contact us if we can assist in her hearing health needs further. Middle ear testing is consistent with a normal middle ear system, bilaterally. Recommendations: Follow up with Dr. Hirsch. Further testing and/or re-evaluation at Dr. Hirsch' discretion. Hearing aids are recommended. The above was explained to Ms. Manzo and she expressed understanding. Electronically Signed by: German Bach, [facility] 04/27/23 11:49 AM documented in this [id number] History of Present illness Narrative* Cayetano Hirsch MD - 04/27/2023 11:25 AM EDT [facility] [address] ([address]) [facility] [address] [facility] [address] Dept: [phone] Loc: [phone] Cayetano Hirsch MD Shona Huwell 62 y.o. female Patient presents with a chief complaint of Consult (Hearing eval / thyroid) Temp 98.1 F (36.7 C) Ht 5' 7.5 Wt 83.9 kg (185 lb) BMI 28.55 kg/m History of Presenting Illness: The patient/caregiver reports a history of complaint with the following features: Onset: started many years ago Timing: gradual worsening Duration: many years Quality: reduced hearing, ringing in both ears Location: both ears Severity: pain none, difficulty understanding speech, distorted, often reads lips Risk factors: family history of hearing loss Alleviating factors: nothing makes it better Aggravating factors: nothing makes it worse Associated factors: hypothyroidism, corrected with medication She reports that she has a mass of the lower neck for the last year. This is painless and has not changed in size. She reports that she was struck with a toy that caused bruising prior to onset of this mass. Review of systems covering 10 systems is reviewed and pertinent positives and negatives are noted as above. Past Medical History: Diagnosis Date Anxiety Back injury Back pain CAD (coronary artery disease) COPD (chronic obstructive pulmonary disease) (HCC) DDD (degenerative disc disease), lumbar Diverticulitis Hypertension Hypothyroidism Traumatic pneumohemothorax Current Outpatient Medications: levothyroxine (SYNTHROID, LEVOTHROID) 25 MCG tablet, Take 1 (one) tablet (25 mcg total) by mouth daily ., Disp: , Rfl: Allergies Allergen Reactions Ciprofloxacin Other (See Comments) anaphylaxis Gabapentin Swelling Past Surgical History: Procedure Laterality Date SECTION CHOLECYSTECTOMY LUNG SURGERY Social History Socioeconomic History Marital status: Tobacco Use Smoking status: Never Smokeless tobacco: Never Substance and Sexual Activity Alcohol use: Never Drug use: Never Family History Problem Relation Age of Onset Cancer Mother Liver cancer Mother Cancer Father Lung cancer Father Cancer Sister Cancer Brother PHYSICAL EXAM: The patient was examined today 04/27/2023 with findings as follows: CONSTITUTIONAL: General Appearance: well-appearing, nontoxic, alert, no acute distress Communication: understanding at normal conversational tones, normal voicing, speech intelligible HEAD/FACE: Head: atraumatic, normocephalic, no lesions Facial Inspection: no lesions, healthy skin Facial Strength: motor strength normal, symmetric strength, symmetric movement Sinuses: no sinus tenderness Salivary Glands: no enlargements of parotid glands, no tenderness of parotid glands, no masses of parotid glands, clear salivary flow on palpation from Stensen's ducts, no duct stones of Stensen's duct, no enlargement of submandibular glands, no tenderness of submandibular glands, no masses of subma ndibular glands, clear salivary flow from Stockett's ducts, no stones of Alek's ducts Temporomandibular Joint: no crepitus with motion, no tenderness on palpation, no trismus, motion symmetric EYES: Pupils: PERRLA, extra-ocular movements intact, no nystagmus, sclera white, no redness of eyes, no watering of eyes EARS: Bilateral External Ears: no pits, no tags Right External Ear: normally formed, no lesions, no mastoid tenderness Left External Ear: normally formed, no lesions, no mastoid tenderness Right External Auditory Canal: normal, healthy skin, no obstructing cerumen, no discharge Left External Auditory Canal: normal, healthy skin, no obstructing cerumen, no discharge Right Tympanic Membrane: normal landmarks, translucent, mobile to pneumatic otoscopy, no perforation Left Tympanic Membrane: normal landmarks, translucent, mobile to pneumatic otoscopy, no perforation Hearing: reduced to spoken voice NOSE: Nasal Skin: no lesions, no lacerations, no scars Nasal Dorsum: symmetric with no visible or palpable deformities Nasal Tip: normal symmetric nasal tip, normal nasal valves Nasal Mucosa: normal, pink and moist Septum: not markedly deformed, midline, no exposed vessels, no bleeding, no septal granuloma Turbinates: normal size and conformation Nasopharynx: normal ORAL CAVITY/MOUTH: Lips, teeth, gums: normal lips, normal gums, dentition intact, no dental pain on palpation Oral Mucosa: normal, moist, no lesions Palate: normal hard palate, normal soft palate, symmetric palatal elevation Floor of Mouth: normal floor of mouth Tongue: normal tongue, no lesions, no edema, no masses, normal mucosa, mobile Tonsils: normal tonsils, symmetric, no lesions Posterior pharynx: normal NECK: Neck: soft 2 cm mass posterior left neck, trachea midline, normal range of motion, no cysts or pits, no tenderness to palpation Thyroid: normal thyroid, no enlargement, no tenderness, no nodules LYMPH NODES: Cervical: no palpable lymph node enlargement SKIN: General Appearance: no lesions, warm and dry, normal turgor, no bruising NEUROLOGICAL SYSTEM: Orientation: oriented to time, oriented to place, oriented to person Cranial Nerves: Cranial Nerves II-XII intact, normal facial movement PSYCHIATRIC: Mood and affect: normal mood, normal affect Assessment and Plan: She presents with a long history of hearing loss. Audiometric testing is performed today with a flat moderate to severe loss. She is medically cleared for hearing aids at this time. Tympanometry shows normal compliance consistent with normally ventilated middle ear spaces. The causes of hearing loss are discussed in the context of the patient's history and exam findings. We have discussed that exposure to excess environmental noise can result in worsened symptoms and that hearing protection in high noise environments is recommended. We have discussed that hearing aids can be helpful when hearing loss is disruptive and the features of hearing loss that respond well to amplification. An appointment with the production inspector in the office is offered if the patient wishes to explore options in this regard. The patient and/or caregiver is able to state an understanding of these recommendations and is agreeable to the treatment plan. She has a soft mass of the left neck following injury. This is most likely a lipoma, with ultrasound evaluation for confirmation offered. Additional imaging of the thyroid is suggested given her history of hypothyroidism although clinically there is no obvious mass. 1. Sensorineural hearing loss, bilateral Ambulatory referral to Audiology 2. Neck mass US Soft Tissue Neck 3. Hypothyroidism, unspecified type Return in about 1 month (around 05/27/2023). The patient and/or caregiver is to notify the office if no improvement or worsening of symptoms is noted prior to the scheduled follow-up for sooner evaluation. The patient and/or caregiver is able to state an understanding of these recommendations and is agreeable to the treatment plan. --Cayetano Hirsch MD on 04/27/2023 at 12:25 PM An electronic signature was used to authenticate this note. * Mayra Trotter MA - 04/27/2023 11:16 AM EDT Review of Systems Constitutional: Negative. HENT: Positive for hearing loss, postnasal drip and tinnitus. Eyes: Positive for visual disturbance. Respiratory: Negative. Cardiovascular: Negative. Gastrointestinal: Negative. Endocrine: Negative. Genitourinary: Negative. Musculoskeletal: Negative. Skin: Negative. Allergic/Immunologic: Positive for environmental allergies. Neurological: Negative. Hematological: Negative. Psychiatric/Behavioral: Negative. documented in this [id number] Hospital Discharge instructions * Instructions* Gabino Salazar MD - 12/02/2019 Motrin / Tylenol for pain, Heating pad as desired * Attachments The following attachments cannot be sent through Care Everywhere. * Chest Pain ([place]) * Shoulder Pain ([place]) documented in this encounterTrustDegrees Phone: evaluation note* Diagnosis Pelvic pain Vaginal discharge Leukorrhea, not specified as infective Screening for cervical cancer Screening for malignant neoplasm of the cervix Dysuria Microscopic hematuria documented in this encounter [employer] Phone: evaluation note* Diagnosis Visit for screening mammogram Other screening mammogram documented in this encounter [employer] Phone: evaluation note* Diagnosis Visit for screening mammogram Other screening mammogram documented in this encounter [employer] Phone: evaluation note* Diagnosis Chest pain, unspecified type- Primary Left shoulder pain, unspecified chronicity documented in this encounter [employer] Phone: evaluhvecp note* Diagnosis Sensorineural hearing loss, bilateral- Primary Neck mass Swelling, mass, or lump in head and neck Hypothyroidism, unspecified type [facility] Sensorineural hearing loss, bilateral- Primary [facility] Diagnosis Lipoma of neck- Primary Neck mass Swelling, mass, or lump in head and neck [facility] Diagnosis Left arm cellulitis- Primary Cellulitis and abscess of upper arm and forearm documented in this encounter [facility] noteNo assessment information available [facility] Work Phone: Hospital course Narrative No data available for this section [facility] Discharge instructions* Attachments The following attachments cannot be sent through Care Everywhere. * Cellulitis ([place]) [facility] No data available for this section [facility] Reason for referral (narrative)No reason for referral information availableSt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 Expl anation Advance Directives and Living Will Power of Horse Trekking Guide Healthcare Agents on File Name Relationship Healthcare Agent Relationship Communication Juventino Manzo Spouse Primary Decision Maker Reason for Referral Status Reason Specialty Diagnoses / Procedures Referre d By Contact Referred To Contact Closed Radiology Diagnoses Visit for screening mammogram Procedures NICK ELIZABETH DIGITAL SCREEN BILATERAL Nereyda Palafox L, DO [address] [address] Status Reason Specialty Diagnoses / Procedures Referre d By Contact Referred To Contact Closed Radiology Diagnoses Visit for screening mammogram Procedures NICK DIGITAL SCREEN W CAD BILATERAL HC MAMMOGRAM DIGITAL SCREEN BILAT YoKatharine vailica L, DO [address] [place] [address] [facility] [address] [place] [address] Specialty Diagnoses / Procedures Referred By Jacky t Referred To Contact Audiology Diagnoses Sensorineural hearing loss, bilateral Cayetano Hirsch MD [address] [phone] [employer] [address] [place] [address] Referral ID Status Reason Start Date Expiration Date V isits Requested Visits Authorized [id number] Pending Review 04/27/2023 04/26/2024 1 1 Specialty Diagnoses / Procedures Referred By Sylviaac t Referred To Contact Radiology Diagnoses Neck mass Procedures US Soft Tissue Neck Cayetano Hirsch MD [address] [phone] Referral ID Status Reason Start Date Expiration Date V isits Requested Visits Authorized [id number] Authorized 04/27/2023 04/26/2024 1 1 Summary Purpose Family History No Family History Records Found Relationship Condition Age at Onset Recorded Date/T angy father Myocardial infarction 83 mother Malignant neoplasm of liver Unknown Chief Complaint and Reason for Visit Chief Complaint Admit Date [facility] ([facility]) June 24, 2025 1: 21pm Reason for Visit Admit Date Endometrial polyp June 24, 2025 1: 21pm Thickened endometrium June 24, 2025 1:21pm Additional Source Comments Reason for Visit (unrecogniz ed section and content) Status Reason Specialty Diagnoses / Procedures Referre d By Contact Referred To Contact Closed Radiology Diagnoses Visit for screening mammogram Procedures NICK ELIZABETH DIGITAL SCREEN BILATERAL Nereyda Palafox, [address] [place] [address] Status Reason Specialty Diagnoses / Procedures Referre d By Contact Referred To Contact Closed Radiology Diagnoses Visit for screening mammogram Procedures NICK DIGITAL SCREEN W CAD BILATERAL HC MAMMOGRAM DIGITAL SCREEN BILAT Nereyda Palafox DO [address] [place] [address] [facility] [address] [place] [address] Reason Comments Chest Pain pressure on left sinan e Reason Comments Consult Hearing eval / thyro id Reason Comments [facility] Reason Comments Insect Bite Patient states she w as bitten by multiple spiders about 1 month ago, and has a spider bite that is not healing. Care Teams (unrecognized sec tion and content) Thermostat Mechanic Relationship Specialty Start Date End Date Nereyda Palafox DO [address] [place] [address] PCP - General Family Medicine 04/27/23 Thermostat Mechanic Relationship Specialty Start Date End Date Nereyda Palafox DO [address] [place] [address] PCP - General Family Medicine 04/27/23 Thermostat Mechanic Relationship Specialty Start Date End Date Nereyda Palafox DO [address] [place] [address] PCP - General Family Medicine 04/27/23 Thermostat Mechanic Relationship Specialty Start Date End Date Nereyda Palafox DO [address] [place] [address] PCP - General Family Medicine 03/15/16 Team Status: Active Member Role/Relationship Status Dates Adrienne James Attending Provider Active Start: 2024 Team Status: Inactive Member Role/Relationship Status Dates Dr. Tasha Miguel MD Attending Provider Active Start: June 24, 2025 End: June 24, 2025 Team Status: Inactive Member Role/Relationship Status Dates Dr. Tasha Miguel MD Attending Provider Active Start: June 24, 2025 End: June 24, 2025 INFORMATION SOURCE (unrecogn ized section and content) DATE CREATED AUTHOR 05/28/2023 [facility] DATE CREATED AUTHOR AUTHOR'S ORGANIZ ATION 06/23/2023 [facility] DATE CREATED AUTHOR AUTHOR'S ORGANIZ ATION 06/24/2024 [facility] DATE CREATED AUTHOR AUTHOR'S ORGANIZ ATION 07/12/2024 [facility] DATE CREATED AUTHOR AUTHOR'S ORGANIZ ATION 09/23/2024 [facility] DATE CREATED AUTHOR AUTHOR'S ORGANIZ ATION 02/12/2025 [facility] DATE CREATED AUTHOR AUTHOR'S ORGANIZ ATION 06/18/2025 [facility] DATE CREATED AUTHOR AUTHOR'S ORGANIZ ATION 07/08/2025 [facility] Ordered Prescriptions (unrec ognized section and content) Prescription Sig Dispensed Refills Start Date End Da te cephALEXin (KEFLEX) 500 MG capsule Take 1 capsule by mouth 3 times daily 21 capsule 07/10/2024 Goals (unrecognized section and content) Goals may be documented in a n alternate section FOR RECORDS PERTAINING TO PATIENTS WHO ARE OR HAVE BEEN ENROLLED IN A CHEMICAL DEPENDENCY/SUBSTANCEABUSE PROGRAM, SOME INFORMATION MAY BE OMITTED. This clinical summary was aggregated from multiple sources. Caution should be exercised in using it in the provision of clinical care. This summary normalizes information from multiple sources, and as a consequence, information in this document may materially change the coding, format and clinical context of patient data. In addition, data may be omitted in some cases. CLINICAL DECISIONS SHOULD BE BASED ON THE PRIMARY CLINICAL RECORDS. [facility] [employer] [facility]. provides no warranty or guarantee of the accuracy or completeness of information in this document.
== END | disposition home or self-care (01) ==
LOC: US 12:09
PROVIDERS: PCP Physician Assistant; Referring Provider Obstetrics & Gynecology; Visit Provider Obstetrics & Gynecology
DX: N92.6 Irregular menstruation, unspecified (principal)
CPT/HCPCS: 76830